=== PATIENT | male | born 1940 | race Caucasian/White ===

== ENCOUNTER → 2017-03-16 | Outpatient (CLI) | payer MEDICARE, OTHER ==
[~2017-03-16] MED LIST: ASPIRIN E.C. 8181 MG PO; ATORVASTATIN CA20 MG PO; CENTRUM SILVER1 EACH PO; CRANBERRY PLUS1 EACH PO; DULERA1 AR1 IH; ESTER-C 1,0001 EACH PO; FUROSEMIDE20 MG PO; GLUCOTROL 5M5 MG/TAB PO; IBUPROFEN 200200 MG PO; METFORMIN HYD1000 MG PO; METOPROLOL SUCC25 M1 PO; NEURONTIN300 MG/CAP PO; NORVASC 10MG10 MG PO; PROAIR HFA0.09 MG/AC IH; SPIRIVA RE2.5 MCG/Ac IH; TERAZOSIN HYDRO10 MG PO; ZYRTEC ALLERGY10 MG PO
== END ==
LOC: LAB 16:41
DX: N30.01 Acute cystitis with hematuria (principal)

== ENCOUNTER 2017-03-17 17:16 | Outpatient (RCR) | payer MEDICARE, OTHER ==
[~2017-03-17] VITALS: Ht 172.7 cm; Wt 134.1 kg
[2017-03-17 17:32] VITALS: BP 143/60
[2017-03-18 17:06] VITALS: BP 166/81
[2017-03-18] MEDS ORDERED: NORVASC 10MG10 MG PO (18:16)
[2017-03-18] MEDS ORDERED: ASPIRIN E.C. 8181 MG PO (18:16)
[2017-03-18] MEDS ORDERED: FUROSEMIDE20 MG PO (18:17)
[2017-03-18] MEDS ORDERED: NEURONTIN300 MG/CAP PO (18:17)
[2017-03-18] MEDS ORDERED: METOPROLOL SUCC25 M1 PO (18:18)
[2017-03-18] MEDS ORDERED: METFORMIN HYD1000 MG PO (18:18)
[2017-03-18] MEDS ORDERED: ATORVASTATIN CA20 MG PO (18:20)
[2017-03-18] MEDS ORDERED: TERAZOSIN HYDRO10 MG PO (18:21)
[2017-03-18] MEDS ORDERED: IBUPROFEN 200200 MG PO (18:21)
[2017-03-18] MEDS ORDERED: PROAIR HFA0.09 MG/AC IH (18:24)
[2017-03-18] MEDS ORDERED: ZYRTEC ALLERGY10 MG PO (18:24)
[2017-03-18] MEDS ORDERED: SPIRIVA RE2.5 MCG/Ac IH (18:25)
[2017-03-18] MEDS ORDERED: DULERA1 AR1 IH (18:25)
[2017-03-18] MEDS ORDERED: GLUCOTROL 5M5 MG/TAB PO (18:25)
[2017-03-18] MEDS ORDERED: CENTRUM SILVER1 EACH PO (18:29)
[2017-03-18] MEDS ORDERED: ESTER-C 1,0001 EACH PO (18:29)
[2017-03-18] MEDS ORDERED: CRANBERRY PLUS1 EACH PO (18:35)
[2017-03-19 16:34] VITALS: BP 137/76
[2017-03-20 15:51] VITALS: BP 151/67
[2017-03-21 15:53] VITALS: BP 148/80
[2017-03-22 15:02] VITALS: BP 130/67
[2017-03-23 16:40] VITALS: BP 122/56
[2017-03-23 16:50] VITALS: BP 148/60
--- NOTE | 2017-03-23 17:00 | NUR ---
At 1640 Pt here for out patient IM rocephin 2gm. Oxygen on room air 85-86% on room air. Pt states he has oxygen he wears 3L/NC. Oxygen applied to pt at 3L/NC. Stated he felt slightly SOB. Sa02 increased to 92-95%. Walks with walker, gait steady. A/o x 3. 1700 Pt and asked if he had a follow appt with Charlette Feliz APRN. Clinic call. Order received for UA and office will call pt on sunday with results and for any follow up appt. 1709 UA received, sent to lab.
== END 2017-03-23 18:00 | disposition home or self-care (01) ==
LOC: AMSURD 17:16
DX: N30.91 Cystitis, unspecified with hematuria (principal)
CPT/HCPCS: J0696

== ENCOUNTER → 2017-03-23 | Outpatient (CLI) | payer MEDICARE, OTHER ==
[2017-03-23 16:40] VITALS: BP 122/56
== END ==
LOC: LAB 17:06
DX: N30.90 Cystitis, unspecified without hematuria (principal)

== ENCOUNTER → 2017-04-13 | Outpatient (CLI) | payer MEDICARE, OTHER ==
[2017-03-23 16:50] VITALS: BP 148/60
[2017-04-13 17:42] LABS: URINE APPEARANCE CLEAR; URINE BILIRUBIN NEGATIVE (NEGATIVE); URINE BLOOD NEGATIVE (NEGATIVE); URINE COLOR YELLOW; URINE GLUCOSE NEGATIVE (NEGATIVE); URINE KETONE NEGATIVE (NEGATIVE); URINE LEUKOCYTE ESTERASE NEGATIVE (NEGATIVE); URINE NITRATE NEGATIVE (NEGATIVE); URINE PROTEIN(semi-quant) NEGATIVE (NEGATIVE); URINE UROBILINOGEN NORMAL (NORMAL)
== END ==
LOC: RAD 16:44
PROVIDERS: Family Medicine
DX: N31.9 Neuromuscular dysfunction of bladder, unspecified (principal); E11.40 Type 2 diabetes mellitus with diabetic neuropathy, unspecified; I10 Essential (primary) hypertension; I35.8 Other nonrheumatic aortic valve disorders; I27.20 Pulmonary hypertension, unspecified; J44.9 Chronic obstructive pulmonary disease, unspecified; M25.572 Pain in left ankle and joints of left foot; Z47.89 Encounter for other orthopedic aftercare; R93.7 Abnormal findings on diagnostic imaging of other parts of musculoskeletal system; Z87.81 Personal history of (healed) traumatic fracture

== ENCOUNTER → 2017-05-24 | Outpatient (CLI) | payer MEDICARE, OTHER ==
[2017-05-24 15:58] LABS: BASO # 0.1 (0.02-0.10); EOS # 0.3 (0.04-0.40); EOS % 3.8 % (0.0-4.0); HEMATOCRIT 44.6 % (42.0-52.0); HEMOGLOBIN 13.8 g/dL (13.5-18.0); LYMPH# 2.1 (1.50-4.00); MEAN CELL VOLUME 99 fl (78-100); MEAN CORPUSCULAR HEMOGLOBIN 31 pg (27-31); MEAN CORPUSCULAR HGB CONC 31 g/dL (33-37); MEAN PLATELET VOLUME 9.7 fl (7.4-10.4); MONO # 0.6 (0.20-0.80); NEU # 3.5 (1.40-6.50); PLATELET COUNT 219 K/mm3 (130-400); RED BLOOD COUNT 4.53 M/mm3 (4.20-5.60); WHITE BLOOD COUNT 6.6 K/mm3 (4.8-10.8)
[2017-05-24 17:11] LABS: ERYTHROCYTE SEDIMENTATION RATE 23 mm/hr (0-20)
== END ==
LOC: LAB 15:19
PROVIDERS: Orthopaedic Surgery Sports Medicine
DX: M25.572 Pain in left ankle and joints of left foot (principal)

== ENCOUNTER 2017-06-14 15:51 | Observation (INO) | payer MEDICARE, OTHER ==
[~2017-06-14] VITALS: Ht 172.7 cm; Wt 130.6 kg
[2017-06-14 16:53] LABS: EOS # 0.3 (0.04-0.40); EOS % 3.8 % (0.0-4.0); HEMATOCRIT 41.1 % (42.0-52.0); HEMOGLOBIN 12.5 g/dL (13.5-18.0); LYMPH# 1.7 (1.50-4.00); MEAN CELL VOLUME 98 fl (78-100); MEAN CORPUSCULAR HEMOGLOBIN 30 pg (27-31); MEAN CORPUSCULAR HGB CONC 30 g/dL (33-37); MEAN PLATELET VOLUME 9.7 fl (7.4-10.4); MONO # 0.7 (0.20-0.80); PLATELET COUNT 200 K/mm3 (130-400); RED BLOOD COUNT 4.18 M/mm3 (4.20-5.60); RED CELL DISTRIBUTION WIDTH 14.9 % (11.5-14.5); WHITE BLOOD COUNT 6.7 K/mm3 (4.8-10.8)
[2017-06-14 17:27] LABS: ALBUMIN 3.3 g/dL (3.5-5.0); CALCIUM 9.1 mg/dL (8.4-10.2); TOTAL BILIRUBIN 0.8 mg/dL (0.2-1.3); TOTAL PROTEIN 6.4 g/dL (6.3-8.2)
[2017-06-14 19:36] VITALS: BP 141/80
--- NOTE | 2017-06-14 19:58 | NUR ---
PATIENT ADMITTED FROM THE ER VIA WHEELCHAIR AT THIS TIME FOR GENERAL WEAKNESS AND FALLS AT HOME, WAS HYPOGLYCEMIC IN THE ER WITH BLOOD SUGAR OF 49, WAS GIVEN ORANGE JUICE AT THAT TIME, HAS BROUGHT IN HIS HOME MEDS AND SON IS BRINGING HIM SOME FOOD AT THIS TIME FOR SUPPER, PATIENT IS ABLE TO TRANSFER SELF FROM THE WHEELCHAIR INTO THE CHAIR WITH STANDBY ASSIST, PARTIAL ASSESSMENT PERFORMED BEFORE PATIENTS FOOD ARRIVED, PATIENT ALERT AND ORIENTED, RESP EVEN/UNLABORD, DENIES ANY PAIN, NAUSEA OR VOMITING, IS NOT LIGHTHEADED OR DIZZY AT THIS TIME, TRAY SET UP FOR PATIENT TO ALLOW HIM TO EAT AT THIS TIME AND WILL RESUME FULL ASSESSMENT IN A LITTLE WHILE, PATIENTS AND SON AT BEDSIDE
--- NOTE | 2017-06-14 21:00 | NUR ---
PATIENT WAS ABLE TO EAT WITHOUT DIFFICULTY, IS CHANGED INTO A GOWN AND FULL SKIN ASSESSMENT PERFORMED AT THIS TIME, TELEMETRY APPLIED, NORMAL SINUS RHYTHM, 1+ EDEMA NOTED TO BILATERAL LOWER LEGS, HAS ALBERTO HOSE ON, LUNGS CLEAR, BOWEL SOUNDS ACTIVE, PULSES STRONG IN ALL 4 EXTREMITIES, HEART REGULAR, PATIENT CLAIMS HE FEELS BETTER NOW THEN HE HAS IN DAYS, EDUCATION PROVIDED ON S/S OF HYPOGLYCEMIA, THE NEED TO CHECK BLOOD SUGARS ESPECIALLY WHEN FEELING LIGHTHEADED/WEAK OR DIZZY, PATIENT THINKS HE HAS A GLUCOMETER AT HOME BUT NOT SURE IF HE HAS ANY STRIPS, WILL PASS THAT INFORMATION ON TO MAKE SURE HE HAS ADEQUATE SUPPLIES BEFORE GOING HOME, EDUCATION PROVIDED ON NORMAL AND ABNORMAL BLOOD SUGAR RANGES AND S/S OF ABNORMAL SUGARS, FURTHER EDUCATION WILL BE NEEDED
[2017-06-14 21:14] LABS: URINE APPEARANCE CLEAR; URINE COLOR YELLOW
[2017-06-14 21:15] LABS: URINE BILIRUBIN NEGATIVE (NEGATIVE); URINE BLOOD NEGATIVE (NEGATIVE); URINE GLUCOSE NEGATIVE (NEGATIVE); URINE KETONE NEGATIVE (NEGATIVE); URINE LEUKOCYTE ESTERASE NEGATIVE (NEGATIVE); URINE NITRATE NEGATIVE (NEGATIVE); URINE PROTEIN(semi-quant) TRACE mg/dL (NEGATIVE); URINE UROBILINOGEN NORMAL (NORMAL); URINE WBC 0-1 /hpf (0-3)
[2017-06-14 22:37] VITALS: BP 132/71
[2017-06-14] MEDS ORDERED: GLUCOTROL 5M5 MG/TAB PO (23:51)
[2017-06-14] MEDS ORDERED: DULERA1 ARO IH (23:53)
[2017-06-15] VITALS (8 sets, daily range): BP systolic 127–159; BP diastolic 59–79
[2017-06-15] MEDS ORDERED: OMEGA 3 1,0001 EACH PO (00:01)
[2017-06-15 07:28] LABS: BUN/CREATININE RATIO 18.4 (6.0-26.0); CALCIUM 8.9 mg/dL (8.4-10.2); POTASSIUM 5.2 mmol/L (3.6-5.0)
--- NOTE | 2017-06-15 07:30 | NUR ---
REPORT RECEIVED FROM Lyudmila HERRERARN
--- NOTE | 2017-06-15 07:50 | NUR ---
PATIENT'S SP02 88% ON 3L O2 NASAL CANNULA. PATIENT REPORTS THAT BREATHING FEELS "NOT TOO BAD" PATIENT'S OXYGEN INCREASED TO 4L NC. SP02 UP TO 89-90%. PATIENT REPORTS THAT IT'S NORMAL FOR HIM TO RUN IN THE 80'S.
--- NOTE | 2017-06-15 07:55 | NUR ---
PATIENT TRANSPORTED TO RADIOLOGY VIA WHEELCHAIR AT THIS TIME FOR THYROID ULTRASOUND AND CAROTID DOPPLARS
--- NOTE | 2017-06-15 07:55 | NUR ---
IN TO SEE PATIENT. NOTIFIED OF PATIENT'SSP02.
--- NOTE | 2017-06-15 08:30 | NUR ---
PATIENT SITTING UP IN RECLINER. SHIFT ASSESSMENT COMPLETE. PATIENT ALERT AND ORIENTED X4. REPORTS HAVING PAIN TO RIGHT SHOULDER THAT IS INTERMITTENT. REPORTS PAIN GETS UP TO 9/10 BUT ONCE HE MOVES IT A CERTAIN WAY PAIN IMPROVES. REPORTS THAT PAIN IS CHRONIC AND DENIES ANY NEED FOR INTERVENTION AT THIS TIME. PATIENT ON OXYGEN VIA NASAL CANNULA AT 4L. WHEN ASKED IF HE IS EXPERIENCING SHORTNESS OF BREATH STATES "NOT TOO BAD" REPORTS THAT HE FEELS THOUGH HE IS BREATHING AT HIS BASELINE. REPORTS FEELING BETTER THIS MORNING AND NOT WEAK. PATIENT'S CALL LIGHT WITHIN REACH. CHAIR ALARM ON.
--- NOTE | 2017-06-15 13:37 | NUR ---
Spoke w/ pt and son regarding HH options upon discharge versus outpt therapy here at hospital. Release of info sheet and HH options sheet presented to pt/son and they prefer to discuss with pt's prior to making any decisions. Pt verbalizes he would prefer in home therapies initially. Family will try to decide by this evening. Family also understands that PCP's office can set up HH if decision cannot be made by time of d/c.
--- NOTE | 2017-06-15 14:50 | NUR ---
Pt and family have chosen [facility] for their HH services. [facility] staff notified of pt's possible d/c tomorrow and they will contact pt tomorrow (if accepted).
[2017-06-15 15:20] LABS: D-DIMER 1.83 mg/L FEU (0.15-0.50)
--- NOTE | 2017-06-15 15:51 | NUR ---
Pt aware of tranfer per Dr. Esquivel's order. Spoke w/ pt regarding SWB services offered here at [facility] should he need further therapy after stay at [facility] and of the continued availability of HHS following hospitalization.
--- NOTE | 2017-06-15 19:45 | NUR ---
REPORT RECEIVED FROM RAMONA ELIZABETH AND BEDSIDE ROUNDING DONE. WILL TALK TO DR ABOUT BLADDER SCAN RESULTS. PT DENIES ANY OTHER NEEDS AT THIS TIME.
--- NOTE | 2017-06-15 20:15 | NUR ---
Pt bladder scanned by day shift for 891 ml at 1830 . Pt then voided approx 100ml. Pt then rebladder scanned by day shift at 1859. Bladder scan ranged from 681-783. Dr Coughlin informed at approx 2000 post void residual. Received orders to straight cath pt. This RN then straight cathed pt for 1050ml. Pt tolerated well. inform of amount of urine. Pt states he now feels less full and he will be able to sleep better tonight.
--- NOTE | 2017-06-16 01:33 | NUR ---
REPORT GIVEN TO RAMONA VALERO AND CARE TRANSFERED.
--- NOTE | 2017-06-16 01:35 | NUR ---
Resting in bed, eyes closed even respirations. Bed alarm set. C-pap machine on.
--- NOTE | 2017-06-16 03:45 | NUR ---
Q hourly checks done. Bed alarm set. C-pap on. Augustine KELLY reported pt's Sa02 83%-87%. Pt opens eyes when spoken too. Denies SOB, chest pain or abd pain. I asked pt to take deep breaths through mouth with c-pap nose piece on. Sa02 increased to 91%.
[2017-06-16 03:47] VITALS: BP 134/73
[2017-06-16 06:24] VITALS: BP 146/74
--- NOTE | 2017-06-16 07:00 | NUR ---
Report to Ruth Booker RN.
--- NOTE | 2017-06-16 07:20 | NUR ---
REPORT RECEIVED FROM RAMONA VALERO
--- NOTE | 2017-06-16 07:30 | NUR ---
0715 Bladder Scan done. Scan showed 979mls. Dr Coughlin called notified. Order received for indwelling catheter to dependant drainage. 0740 Howard catheter 16 uzbek placed. Stat lock placed on pt's right upper inner thigh.
--- NOTE | 2017-06-16 07:32 | NUR ---
Dr Coughlin notified of pt bladder scan results of >900. He orders ayala cath to be placed
--- NOTE | 2017-06-16 08:30 | NUR ---
PATIENT'S SHIFT ASSESSMENT COMPLETE. PATIENT ALERT AND ORIENTED X4. DENIES ANY PAIN OR DISCOMFORTS AT THIS TIME. REPORTS THAT HE HAD A GOOD NIGHT LASTNIGHT. WHEN ASKED HOW HE IS FEELING THIS MORNING STATES "PRETTY GOOD ACTUALLY, I FEEL LIKE I'M GETTING STRENGTH BACK" REPORTS HIS BREATHING FEELS "NOT TOO BAD" ON OXYGEN VIA NASAL CANNULA AT 3L. PATIENT HAS +2 EDEMA TO BILAT LOWER EXT. PATIENT'S RIGHT LEG MORE EDEMATOUS THIS MORNING THAN YESTERDAY. PATIENT'S ABDOMEN ROUNDED. ABDOMEN NOT DISTENDED AFTER WU CATHETER PLACEMENT. PATIENT'S CALL LIGHT WITHIN REACH. BED ALARM ON.
[2017-06-16 09:05] LABS: BASO # 0.1 (0.02-0.10); EOS # 0.3 (0.04-0.40); HEMATOCRIT 42.3 % (42.0-52.0); HEMOGLOBIN 12.9 g/dL (13.5-18.0); LYMPH# 1.3 (1.50-4.00); MEAN CELL VOLUME 98 fl (78-100); MEAN CORPUSCULAR HEMOGLOBIN 30 pg (27-31); MEAN CORPUSCULAR HGB CONC 31 g/dL (33-37); MEAN PLATELET VOLUME 9.4 fl (7.4-10.4); MONO # 0.6 (0.20-0.80); NEU # 3.6 (1.40-6.50); PLATELET COUNT 218 K/mm3 (130-400); RED BLOOD COUNT 4.33 M/mm3 (4.20-5.60); WHITE BLOOD COUNT 5.8 K/mm3 (4.8-10.8)
[2017-06-16 09:13] LABS: EOS % 5.1 % (0.0-4.0)
[2017-06-16 09:14] LABS: BUN/CREATININE RATIO 19.1 (6.0-26.0)
[2017-06-16 11:25] VITALS: BP 130/71
--- NOTE | 2017-06-16 11:30 | NUR ---
IN TO SEE PATIENT.
[2017-06-16 14:38] VITALS: BP 141/72
--- NOTE | 2017-06-16 16:15 | NUR ---
PATIENT PROVIDED DISCHARGE INSTRUCTIONS PATIENT'S IN ROOM. THIS NURSE SPENT AT LEAST 1 HOUR IN ROOM WITH PATIENT AND PROVIDING EDUCATION AND GOING OVER DISCHARGE INFORMATION. THIS NURSE PROVIDED THOROUGH EDUCATION ON WU CATHETER CARE AT HOME ESPECIALLY ON INFECTION PREVENTION. DEMONSTRATED TO BOTH PATIENT AND HOW TO CHANGE DEPENDENT BAG TO LEG BAG. VERBALIZED UNDERSTANDING OF INSTRUCTIONS. DENIED ANY QUESTIONS REGARDING HOME CATH CARE AT THIS TIME. PATIENT SENT HOME WITH LEG BAG,EXTRA STAT LOCK,EXTRA WU CATHETER BAG. WENT OVER PATIENT'S MEDICATIONS AND LIST. PROVIDED PATIENT WITH COPIES OF LABS, EKG,AND HEALTH HISTORY PACKET TO TAKE TO DR.KATZ CROUCH. DENIES ANY QUESTIONS FOR THE NURSE AT THIS TIME.
--- NOTE | 2017-06-16 16:30 | NUR ---
CONTACTED [facility] AND NOTIFIED THEM THAT PATIENT IS BEING DISCHARGED TODAY. [facility] WAS NOT PLANNING ON DOING PATIENT'S ADMISSION UNTIL SUNDAY THEY ASKED IF PATIENT WOULD BE OKAY WITHOUT HOME HEALTH UNTIL SUNDAY. REQUESTED THAT THEY COME SUNDAY. HOME HEALTH NURSE PROVIDED WEEKEND CLIENT SERVICE REPRESENTATIVE NUMBER TO GIVE TO PATIENT AND WANTED PATIENT TO CALL THAT NUMBER IF THEY NEEDED ANYTHING AT ALL OVER THE WEEKEND. PROVIDED NUMBER TO PATIENT AND .
--- NOTE | 2017-06-16 16:50 | NUR ---
DAKOTA AUTOMATIC CLIPPER IN WITH PATIENT AND TO SET UP NEW ACCU CHECK MONITOR AND TO EDUCATE ON HOW TO USE AND MAKE SURE PATIENT IS ABLE TO USE AT HOME. PATIENT PROVIDED EDUCATION ON DIABETIES DIET AND NORMAL BLOOD SUGAR RANGES.
--- NOTE | 2017-06-16 17:03 | NUR ---
PATIENT LEFT FACILITY VIA WHEELCHAIR TO POV ACCOMPANIED BY THIS NURSE ZAN AND PATIENT'S . PERSONAL BELONGINGS AND DISCHARGE PAPERWORK SENT WITH PATIENT'S . PATIENT'S DISCHARGE INSTRUCTIONS FAXED TO [facility] PER INSTRUCTIONS ALSO CALLED AND NOTIFIED OF PATIENT'S DISCHARGE TIME AND THAT PATIENT HAS APPT WITH [facility] Sunday SO THEY WILL NEED TO COME SOMETIME AFTER APPT TO DO PATIENT'S HOME HEALTH ADMISSION.
== END 2017-06-16 17:03 | disposition home health service (06) ==
LOC: ED 15:51 → MED/SURG 19:28
PROVIDERS: Family Medicine; Nurse Practitioner Family; ADMIT Family Medicine
DX: N17.9 Acute kidney failure, unspecified (principal); J44.9 Chronic obstructive pulmonary disease, unspecified; E11.22 Type 2 diabetes mellitus with diabetic chronic kidney disease; N18.9 Chronic kidney disease, unspecified; E11.649 Type 2 diabetes mellitus with hypoglycemia without coma; T38.3X5A Adverse effect of insulin and oral hypoglycemic [antidiabetic] drugs, initial encounter; I12.9 Hypertensive chronic kidney disease with stage 1 through stage 4 chronic kidney disease, or unspecified chronic kidney disease; Z79.84 Long term (current) use of oral hypoglycemic drugs; I35.0 Nonrheumatic aortic (valve) stenosis; E11.40 Type 2 diabetes mellitus with diabetic neuropathy, unspecified; E66.01 Morbid (severe) obesity due to excess calories; I27.20 Pulmonary hypertension, unspecified; G47.30 Sleep apnea, unspecified; N31.9 Neuromuscular dysfunction of bladder, unspecified; R01.1 Cardiac murmur, unspecified; R09.02 Hypoxemia; N13.9 Obstructive and reflux uropathy, unspecified; Z99.81 Dependence on supplemental oxygen; N39.498 Other specified urinary incontinence; Z91.81 History of falling; Z68.42 Body mass index [BMI] 45.0-49.9, adult; Z87.891 Personal history of nicotine dependence; Z88.5 Allergy status to narcotic agent; Z88.8 Allergy status to other drugs, medicaments and biological substances; Z79.82 Long term (current) use of aspirin; Z79.02 Long term (current) use of antithrombotics/antiplatelets; Z79.01 Long term (current) use of anticoagulants
CPT/HCPCS: A4354; G0378; G8978-GP; G8979-GP; J1650

== ENCOUNTER → 2017-06-20 | Outpatient (CLI) | payer MEDICARE, OTHER ==
[2017-06-16 14:38] VITALS: BP 141/72
[~2017-06-20] MED LIST changes: +DULERA1 ARO IH; +OMEGA 3 1,0001 EACH PO
[2017-06-20 16:19] LABS: BUN/CREATININE RATIO 19.4 (6.0-26.0); CALCIUM 9.3 mg/dL (8.4-10.2)
[2017-06-20 16:50] LABS: URINE APPEARANCE HAZY; URINE BILIRUBIN NEGATIVE (NEGATIVE); URINE BLOOD 250 ery/uL (NEGATIVE); URINE COLOR YELLOW; URINE GLUCOSE NEGATIVE (NEGATIVE); URINE KETONE NEGATIVE (NEGATIVE); URINE LEUKOCYTE ESTERASE 1+ (NEGATIVE); URINE NITRATE POSITIVE (NEGATIVE); URINE PROTEIN(semi-quant) 2+ mg/dL (NEGATIVE); URINE UROBILINOGEN NORMAL (NORMAL)
== END ==
LOC: LAB 15:53
PROVIDERS: Family Medicine
DX: R50.9 Fever, unspecified (principal); R30.0 Dysuria

== ENCOUNTER → 2017-06-25 | Outpatient (CLI) | payer MEDICARE, OTHER ==
[2017-06-16 14:38] VITALS: BP 141/72
[2017-06-25 14:07] LABS: URINE APPEARANCE HAZY; URINE COLOR YELLOW
[2017-06-25 14:08] LABS: URINE BILIRUBIN NEGATIVE (NEGATIVE); URINE BLOOD 50 ery/uL (NEGATIVE); URINE GLUCOSE NEGATIVE (NEGATIVE); URINE KETONE NEGATIVE (NEGATIVE); URINE LEUKOCYTE ESTERASE 2+ (NEGATIVE); URINE NITRATE NEGATIVE (NEGATIVE); URINE PROTEIN(semi-quant) 2+ mg/dL (NEGATIVE); URINE UROBILINOGEN NORMAL (NORMAL); URINE WBC >50 /hpf (0-3)
== END ==
LOC: LAB 12:38
PROVIDERS: Family Medicine
DX: N31.9 Neuromuscular dysfunction of bladder, unspecified (principal); R33.8 Other retention of urine; N39.0 Urinary tract infection, site not specified; E13.9 Other specified diabetes mellitus without complications; I10 Essential (primary) hypertension; J44.9 Chronic obstructive pulmonary disease, unspecified

== ENCOUNTER → 2017-07-02 | Outpatient (CLI) | payer MEDICARE, OTHER ==
[2017-06-16 14:38] VITALS: BP 141/72
[2017-07-02 16:10] LABS: URINE APPEARANCE HAZY; URINE COLOR YELLOW
[2017-07-02 16:11] LABS: URINE BILIRUBIN NEGATIVE (NEGATIVE); URINE BLOOD NEGATIVE (NEGATIVE); URINE GLUCOSE NEGATIVE (NEGATIVE); URINE KETONE NEGATIVE (NEGATIVE); URINE LEUKOCYTE ESTERASE NEGATIVE (NEGATIVE); URINE NITRATE NEGATIVE (NEGATIVE); URINE PROTEIN(semi-quant) TRACE mg/dL (NEGATIVE); URINE UROBILINOGEN NORMAL (NORMAL); URINE WBC 0-1 /hpf (0-3)
== END ==
LOC: LAB 15:17
PROVIDERS: Family Medicine
DX: N39.0 Urinary tract infection, site not specified (principal); R33.8 Other retention of urine; Z88.5 Allergy status to narcotic agent; Z88.8 Allergy status to other drugs, medicaments and biological substances

== ENCOUNTER → 2017-07-05 | Outpatient (CLI) | payer MEDICARE, OTHER ==
[~2017-07-05] VITALS: Ht 172.7 cm; Wt 130.6 kg
[2017-07-05 13:29] LABS: URINE APPEARANCE CLOUDY; URINE BILIRUBIN NEGATIVE (NEGATIVE); URINE BLOOD 250 ery/uL (NEGATIVE); URINE COLOR YELLOW; URINE GLUCOSE NEGATIVE (NEGATIVE); URINE KETONE NEGATIVE (NEGATIVE); URINE LEUKOCYTE ESTERASE 1+ (NEGATIVE); URINE NITRATE NEGATIVE (NEGATIVE); URINE PROTEIN(semi-quant) 3+ mg/dL (NEGATIVE); URINE UROBILINOGEN NORMAL (NORMAL); URINE WBC >50 /hpf (0-3)
[2017-07-05 13:34] VITALS: BP 151/75
--- NOTE | 2017-07-05 13:38 | NUR ---
straight cath completed using #12 ayala for collection of UA and Culture,ordered per Dr. Black. Spec to lab, patient home
== END ==
LOC: LAB 12:17 → AMSURD 12:17
PROVIDERS: Urology
DX: N39.0 Urinary tract infection, site not specified (principal)
CPT/HCPCS: A4344; A4354

== ENCOUNTER → 2017-07-12 | Outpatient (CLI) | payer MEDICARE, OTHER ==
[2017-07-05 13:34] VITALS: BP 151/75
[2017-07-12 13:04] LABS: URINE APPEARANCE CLEAR; URINE BILIRUBIN NEGATIVE (NEGATIVE); URINE BLOOD NEGATIVE (NEGATIVE); URINE COLOR YELLOW; URINE GLUCOSE NEGATIVE (NEGATIVE); URINE KETONE NEGATIVE (NEGATIVE); URINE LEUKOCYTE ESTERASE NEGATIVE (NEGATIVE); URINE NITRATE NEGATIVE (NEGATIVE); URINE PROTEIN(semi-quant) TRACE mg/dL (NEGATIVE); URINE UROBILINOGEN NORMAL (NORMAL); URINE WBC 0-1 /hpf (0-3)
== END ==
LOC: LAB 12:41
PROVIDERS: Family Medicine
DX: N31.9 Neuromuscular dysfunction of bladder, unspecified (principal); E11.9 Type 2 diabetes mellitus without complications; Z88.5 Allergy status to narcotic agent

== ENCOUNTER → 2017-07-24 | Outpatient (CLI) | payer MEDICARE, OTHER ==
[2017-07-05 13:34] VITALS: BP 151/75
[2017-07-24 14:11] LABS: URINE APPEARANCE CLOUDY; URINE BILIRUBIN NEGATIVE (NEGATIVE); URINE BLOOD 250 ery/uL (NEGATIVE); URINE COLOR YELLOW; URINE GLUCOSE NEGATIVE (NEGATIVE); URINE KETONE NEGATIVE (NEGATIVE); URINE LEUKOCYTE ESTERASE 2+ (NEGATIVE); URINE NITRATE NEGATIVE (NEGATIVE); URINE PROTEIN(semi-quant) 2+ mg/dL (NEGATIVE); URINE UROBILINOGEN NORMAL (NORMAL)
[2017-07-24 14:12] LABS: URINE WBC >50 /hpf (0-3)
== END ==
LOC: LAB 13:32
PROVIDERS: Family Medicine
DX: N39.0 Urinary tract infection, site not specified (principal); R50.9 Fever, unspecified; N31.9 Neuromuscular dysfunction of bladder, unspecified; R30.0 Dysuria

== ENCOUNTER → 2017-07-30 | Outpatient (CLI) | payer MEDICARE, OTHER ==
[2017-07-05 13:34] VITALS: BP 151/75
[2017-07-30 13:23] LABS: EOS # 0.2 (0.04-0.40); EOS % 2.4 % (0.0-4.0); HEMOGLOBIN 12.8 g/dL (13.5-18.0); LYMPH# 1.3 (1.50-4.00); MEAN CELL VOLUME 93 fl (78-100); MEAN CORPUSCULAR HEMOGLOBIN 29 pg (27-31); MEAN CORPUSCULAR HGB CONC 31 g/dL (33-37); MEAN PLATELET VOLUME 9.2 fl (7.4-10.4); MONO # 0.7 (0.20-0.80); PLATELET COUNT 272 K/mm3 (130-400); RED BLOOD COUNT 4.41 M/mm3 (4.20-5.60); RED CELL DISTRIBUTION WIDTH 14.2 % (11.5-14.5); WHITE BLOOD COUNT 7.2 K/mm3 (4.8-10.8)
[2017-07-30 13:59] LABS: ALBUMIN 3.8 g/dL (3.5-5.0); BUN/CREATININE RATIO 16.7 (6.0-26.0); CALCIUM 9.1 mg/dL (8.4-10.2); TOTAL BILIRUBIN 0.3 mg/dL (0.2-1.3); TOTAL PROTEIN 7.4 g/dL (6.3-8.2)
== END ==
LOC: LAB 13:09
PROVIDERS: Family Medicine
DX: R60.0 Localized edema (principal); J06.9 Acute upper respiratory infection, unspecified; L20.9 Atopic dermatitis, unspecified; Z88.5 Allergy status to narcotic agent

== ENCOUNTER → 2017-08-02 | Outpatient (CLI) | payer MEDICARE, OTHER ==
[2017-07-05 13:34] VITALS: BP 151/75
[2017-08-02 19:01] LABS: PH-URINE 5.5 (5.0 - 8.0); URINE APPEARANCE CLEAR; URINE COLOR YELLOW; URINE PROTEIN(semi-quant) TRACE mg/dL (NEGATIVE)
[2017-08-02 19:03] LABS: URINE BILIRUBIN NEGATIVE (NEGATIVE); URINE BLOOD NEGATIVE (NEGATIVE); URINE GLUCOSE NEGATIVE (NEGATIVE); URINE KETONE NEGATIVE (NEGATIVE); URINE LEUKOCYTE ESTERASE TRACE (NEGATIVE); URINE NITRATE NEGATIVE (NEGATIVE); URINE UROBILINOGEN NORMAL (NORMAL)
== END ==
LOC: LAB 18:15
PROVIDERS: Family Medicine
DX: R60.0 Localized edema (principal); J06.9 Acute upper respiratory infection, unspecified; L20.9 Atopic dermatitis, unspecified

== ENCOUNTER → 2017-08-09 | Outpatient (CLI) | payer MEDICARE, OTHER ==
[2017-07-05 13:34] VITALS: BP 151/75
[2017-08-09 18:05] LABS: BUN/CREATININE RATIO 25.6 (6.0-26.0); CALCIUM 9.5 mg/dL (8.4-10.2); POTASSIUM 5.1 mmol/L (3.6-5.0)
[2017-08-09 18:16] LABS: PH-URINE 5.5 (5.0 - 8.0); URINE APPEARANCE CLEAR; URINE COLOR YELLOW
[2017-08-09 18:17] LABS: URINE BILIRUBIN NEGATIVE (NEGATIVE); URINE BLOOD NEGATIVE (NEGATIVE); URINE GLUCOSE NEGATIVE (NEGATIVE); URINE KETONE NEGATIVE (NEGATIVE); URINE LEUKOCYTE ESTERASE NEGATIVE (NEGATIVE); URINE NITRATE NEGATIVE (NEGATIVE); URINE PROTEIN(semi-quant) TRACE mg/dL (NEGATIVE); URINE UROBILINOGEN NORMAL (NORMAL); URINE WBC 0-1 /hpf (0-3)
== END ==
LOC: LAB 17:37
PROVIDERS: Family Medicine
DX: N39.0 Urinary tract infection, site not specified (principal); N31.9 Neuromuscular dysfunction of bladder, unspecified; R60.0 Localized edema; Z88.5 Allergy status to narcotic agent

== ENCOUNTER → 2017-10-16 | Outpatient (CLI) | payer MEDICARE, OTHER ==
[2017-07-05 13:34] VITALS: BP 151/75
[2017-10-16 11:51] LABS: ALBUMIN 3.7 g/dL (3.5-5.0); BUN/CREATININE RATIO 24.4 (6.0-26.0); CALCIUM 9.1 mg/dL (8.4-10.2); POTASSIUM 4.4 mmol/L (3.6-5.0); TOTAL BILIRUBIN 0.4 mg/dL (0.2-1.3); TOTAL PROTEIN 7.3 g/dL (6.3-8.2)
== END ==
LOC: LAB 11:12
PROVIDERS: Family Medicine
DX: J44.1 Chronic obstructive pulmonary disease with (acute) exacerbation (principal); J30.9 Allergic rhinitis, unspecified; E11.9 Type 2 diabetes mellitus without complications; I10 Essential (primary) hypertension

== ENCOUNTER → 2017-10-31 | Outpatient (CLI) | payer MEDICARE, OTHER ==
[2017-07-05 13:34] VITALS: BP 151/75
[2017-10-31 15:56] LABS: URINE APPEARANCE HAZY; URINE COLOR YELLOW; URINE GLUCOSE NEGATIVE (NEGATIVE); URINE PROTEIN(semi-quant) 2+ mg/dL (NEGATIVE)
[2017-10-31 15:57] LABS: URINE BILIRUBIN NEGATIVE (NEGATIVE); URINE BLOOD 50 ery/uL (NEGATIVE); URINE KETONE NEGATIVE (NEGATIVE); URINE LEUKOCYTE ESTERASE 2+ (NEGATIVE); URINE NITRATE NEGATIVE (NEGATIVE); URINE UROBILINOGEN NORMAL (NORMAL); URINE WBC >50 /hpf (0-3)
[2017-10-31 17:31] LABS: BUN/CREATININE RATIO 20.5 (6.0-26.0); CALCIUM 9.4 mg/dL (8.4-10.2)
== END ==
LOC: LAB 16:44
PROVIDERS: Family Medicine
DX: N18.3 Chronic kidney disease, stage 3 (moderate) (principal); N31.9 Neuromuscular dysfunction of bladder, unspecified; R33.9 Retention of urine, unspecified; N39.0 Urinary tract infection, site not specified; R30.0 Dysuria

== ENCOUNTER → 2017-11-07 | Outpatient (CLI) | payer MEDICARE, OTHER ==
[2017-07-05 13:34] VITALS: BP 151/75
[2017-11-07 11:09] LABS: URINE APPEARANCE CLEAR; URINE BILIRUBIN NEGATIVE (NEGATIVE); URINE BLOOD NEGATIVE (NEGATIVE); URINE COLOR YELLOW; URINE GLUCOSE NEGATIVE (NEGATIVE); URINE KETONE NEGATIVE (NEGATIVE); URINE LEUKOCYTE ESTERASE NEGATIVE (NEGATIVE); URINE NITRATE NEGATIVE (NEGATIVE); URINE PROTEIN(semi-quant) NEGATIVE (NEGATIVE); URINE UROBILINOGEN NORMAL (NORMAL)
== END ==
LOC: LAB 10:52
PROVIDERS: Family Medicine
DX: N31.9 Neuromuscular dysfunction of bladder, unspecified (principal); R33.9 Retention of urine, unspecified

== ENCOUNTER → 2017-11-19 | Outpatient (CLI) | payer MEDICARE, OTHER ==
[2017-07-05 13:34] VITALS: BP 151/75
[2017-11-19 13:35] LABS: URINE APPEARANCE HAZY; URINE COLOR YELLOW
[2017-11-19 13:36] LABS: URINE BILIRUBIN NEGATIVE (NEGATIVE); URINE BLOOD NEGATIVE (NEGATIVE); URINE GLUCOSE NEGATIVE (NEGATIVE); URINE KETONE NEGATIVE (NEGATIVE); URINE LEUKOCYTE ESTERASE 2+ (NEGATIVE); URINE NITRATE POSITIVE (NEGATIVE); URINE PROTEIN(semi-quant) TRACE mg/dL (NEGATIVE); URINE UROBILINOGEN NORMAL (NORMAL); URINE WBC 31-50 /hpf (0-3)
== END ==
LOC: LAB 12:32
PROVIDERS: Family Medicine
DX: R33.9 Retention of urine, unspecified (principal); N31.9 Neuromuscular dysfunction of bladder, unspecified

== ENCOUNTER → 2017-11-29 | Outpatient (CLI) | payer MEDICARE, OTHER ==
[2017-07-05 13:34] VITALS: BP 151/75
[2017-11-29 10:33] LABS: URINE COLOR YELLOW
[2017-11-29 10:34] LABS: URINE APPEARANCE HAZY; URINE BILIRUBIN NEGATIVE (NEGATIVE); URINE BLOOD NEGATIVE (NEGATIVE); URINE GLUCOSE NEGATIVE (NEGATIVE); URINE KETONE NEGATIVE (NEGATIVE); URINE LEUKOCYTE ESTERASE 2+ (NEGATIVE); URINE NITRATE POSITIVE (NEGATIVE); URINE PROTEIN(semi-quant) 1+ mg/dL (NEGATIVE); URINE UROBILINOGEN NORMAL (NORMAL)
[2017-11-29 10:35] LABS: URINE WBC 31-50 /hpf (0-3)
== END ==
LOC: LAB 10:12
PROVIDERS: Family Medicine
DX: R33.9 Retention of urine, unspecified (principal); N31.9 Neuromuscular dysfunction of bladder, unspecified

== ENCOUNTER → 2018-01-14 | Outpatient (CLI) | payer MEDICARE, OTHER ==
[2017-07-05 13:34] VITALS: BP 151/75
[2018-01-14 14:30] LABS: BUN/CREATININE RATIO 21.9 (6.0-26.0); CALCIUM 8.8 mg/dL (8.4-10.2)
== END ==
LOC: LAB 14:03
PROVIDERS: Family Medicine
DX: E11.22 Type 2 diabetes mellitus with diabetic chronic kidney disease (principal); N18.3 Chronic kidney disease, stage 3 (moderate)

== ENCOUNTER 2018-01-18 18:36 | Outpatient (RCR) | payer MEDICARE, OTHER ==
[~2018-01-18] VITALS: Ht 172.7 cm; Wt 122.7 kg
[2018-01-18 19:10] VITALS: BP 121/57
--- NOTE | 2018-01-18 19:14 | NUR ---
Pt reports he uses oxygen at home all the time. He reports 89% is about right for me.
[2018-01-19 18:56] VITALS: BP 127/63
[2018-01-20 18:58] VITALS: BP 115/71
== END 2018-01-20 23:00 | disposition home or self-care (01) ==
LOC: AMSURD 18:36
DX: N39.0 Urinary tract infection, site not specified (principal)
CPT/HCPCS: J0696

== ENCOUNTER → 2018-01-18 | Outpatient (CLI) | payer MEDICARE, OTHER ==
[2017-07-05 13:34] VITALS: BP 151/75
[2018-01-18 10:30] LABS: PH-URINE 5.5 (5.0 - 8.0); URINE APPEARANCE HAZY; URINE BILIRUBIN NEGATIVE (NEGATIVE); URINE BLOOD NEGATIVE (NEGATIVE); URINE COLOR YELLOW; URINE GLUCOSE NEGATIVE (NEGATIVE); URINE KETONE NEGATIVE (NEGATIVE); URINE LEUKOCYTE ESTERASE 2+ (NEGATIVE); URINE NITRATE POSITIVE (NEGATIVE); URINE PROTEIN(semi-quant) TRACE mg/dL (NEGATIVE); URINE UROBILINOGEN NORMAL (NORMAL)
[2018-01-18 10:31] LABS: URINE WBC >50 /hpf (0-3)
== END ==
LOC: LAB 09:21
PROVIDERS: Family Medicine
DX: N18.3 Chronic kidney disease, stage 3 (moderate) (principal); R33.9 Retention of urine, unspecified; N39.0 Urinary tract infection, site not specified

== ENCOUNTER → 2018-03-01 | Outpatient (CLI) | payer MEDICARE, OTHER ==
[~2018-03-01] MED LIST changes: +RT ADVAIR HFA 2312 G IH
[2018-03-01 18:41] LABS: URINE COLOR YELLOW
[2018-03-01 18:42] LABS: URINE APPEARANCE CLEAR; URINE BILIRUBIN NEGATIVE (NEGATIVE); URINE BLOOD NEGATIVE (NEGATIVE); URINE GLUCOSE NEGATIVE (NEGATIVE); URINE KETONE NEGATIVE (NEGATIVE); URINE LEUKOCYTE ESTERASE NEGATIVE (NEGATIVE); URINE NITRATE NEGATIVE (NEGATIVE); URINE PROTEIN(semi-quant) TRACE mg/dL (NEGATIVE); URINE UROBILINOGEN NORMAL (NORMAL); URINE WBC 0-1 /hpf (0-3)
== END ==
LOC: LAB 14:56
PROVIDERS: Family Medicine
DX: N18.3 Chronic kidney disease, stage 3 (moderate) (principal); R33.9 Retention of urine, unspecified; N39.0 Urinary tract infection, site not specified

== ENCOUNTER 2018-03-03 13:54 | Outpatient (RCR) | payer MEDICARE, OTHER ==
[2018-03-01 15:05] VITALS: BP 143/67
[2018-03-02 14:11] VITALS: BP 142/74
[~2018-03-03] VITALS: Ht 172.7 cm; Wt 122.7 kg
[2018-03-03 13:58] VITALS: BP 149/66
== END 2018-03-03 15:00 | disposition home or self-care (01) ==
LOC: AMSURD 13:54
DX: N39.0 Urinary tract infection, site not specified (principal)
CPT/HCPCS: J0696

== ENCOUNTER 2018-05-02 13:59 | Outpatient (RCR) | payer MEDICARE, OTHER ==
[2018-05-01 12:49] VITALS: BP 131/68
[~2018-05-02] VITALS: Ht 172.7 cm; Wt 122.7 kg
[~2018-05-02 13:59] MED LIST changes: +CEFTRIAXONE1 G1 IM
[2018-05-02 14:10] VITALS: BP 136/72
== END 2018-05-02 15:00 | disposition home or self-care (01) ==
LOC: AMSURD 13:59
DX: N39.0 Urinary tract infection, site not specified (principal)
CPT/HCPCS: J0696

== ENCOUNTER → 2018-07-01 | Outpatient (CLI) | payer MEDICARE, OTHER ==
[2018-07-01 17:23] LABS: PH-URINE 6.5 (5.0 - 8.0); URINE APPEARANCE CLEAR; URINE COLOR YELLOW; URINE PROTEIN(semi-quant) TRACE mg/dL (NEGATIVE)
[2018-07-01 17:24] LABS: URINE BILIRUBIN NEGATIVE (NEGATIVE); URINE BLOOD NEGATIVE (NEGATIVE); URINE GLUCOSE NEGATIVE (NEGATIVE); URINE KETONE NEGATIVE (NEGATIVE); URINE LEUKOCYTE ESTERASE 1+ (NEGATIVE); URINE NITRATE NEGATIVE (NEGATIVE); URINE UROBILINOGEN NORMAL (NORMAL); URINE WBC 16-30 /hpf (0-3)
== END ==
LOC: LAB 16:29
PROVIDERS: Family Medicine
DX: N39.0 Urinary tract infection, site not specified (principal); B99.9 Unspecified infectious disease; N31.9 Neuromuscular dysfunction of bladder, unspecified

== ENCOUNTER → 2018-07-12 | Outpatient (CLI) | payer MEDICARE, OTHER ==
[2018-07-12 15:50] LABS: PH-URINE 5.5 (5.0 - 8.0); URINE APPEARANCE CLOUDY; URINE BILIRUBIN NEGATIVE (NEGATIVE); URINE BLOOD 50 ery/uL (NEGATIVE); URINE COLOR YELLOW; URINE GLUCOSE NEGATIVE (NEGATIVE); URINE KETONE NEGATIVE (NEGATIVE); URINE LEUKOCYTE ESTERASE 2+ (NEGATIVE); URINE NITRATE NEGATIVE (NEGATIVE); URINE PROTEIN(semi-quant) 2+ mg/dL (NEGATIVE); URINE UROBILINOGEN NORMAL (NORMAL)
[2018-07-12 15:51] LABS: URINE WBC >50 /hpf (0-3)
== END ==
LOC: LAB 14:11
PROVIDERS: Family Medicine
DX: N31.9 Neuromuscular dysfunction of bladder, unspecified (principal); N39.0 Urinary tract infection, site not specified; B99.9 Unspecified infectious disease

== ENCOUNTER → 2018-08-08 | Outpatient (CLI) | payer MEDICARE, OTHER ==
[2018-08-09 13:02] LABS: URINE APPEARANCE HAZY; URINE BILIRUBIN NEGATIVE (NEGATIVE); URINE BLOOD TRACE (NEGATIVE); URINE COLOR YELLOW; URINE GLUCOSE NEGATIVE (NEGATIVE); URINE KETONE NEGATIVE (NEGATIVE); URINE LEUKOCYTE ESTERASE 2+ (NEGATIVE); URINE NITRATE POSITIVE (NEGATIVE); URINE PROTEIN(semi-quant) 1+ mg/dL (NEGATIVE); URINE UROBILINOGEN NORMAL (NORMAL); URINE WBC 31-50 /hpf (0-3)
== END ==
LOC: LAB 16:00
PROVIDERS: Family Medicine
DX: N30.00 Acute cystitis without hematuria (principal); B96.1 Klebsiella pneumoniae [K. pneumoniae] as the cause of diseases classified elsewhere; N31.9 Neuromuscular dysfunction of bladder, unspecified; R33.9 Retention of urine, unspecified

== ENCOUNTER → 2018-11-12 | Outpatient (CLI) | payer MEDICARE, OTHER ==
[2018-11-12 13:54] LABS: ALBUMIN 3.8 g/dL (3.4-4.8); CALCIUM 9.9 mg/dL (8.3-10.5); POTASSIUM 5.5 mmol/L (3.5-5.1); TOTAL BILIRUBIN 0.3 mg/dL (0.2-1.2); TOTAL PROTEIN 7.3 g/dL (6.2-8.1)
== END ==
LOC: LAB 13:25
PROVIDERS: Family Medicine
DX: I12.9 Hypertensive chronic kidney disease with stage 1 through stage 4 chronic kidney disease, or unspecified chronic kidney disease (principal); E11.22 Type 2 diabetes mellitus with diabetic chronic kidney disease; N18.3 Chronic kidney disease, stage 3 (moderate)

== ENCOUNTER → 2018-11-13 | Outpatient (CLI) | payer MEDICARE, OTHER ==
[2018-11-13 17:45] LABS: CALCIUM 9.4 mg/dL (8.3-10.5); POTASSIUM 5.7 mmol/L (3.5-5.1)
== END ==
LOC: LAB 17:10
PROVIDERS: Family Medicine
DX: E11.22 Type 2 diabetes mellitus with diabetic chronic kidney disease (principal); N18.3 Chronic kidney disease, stage 3 (moderate); E87.5 Hyperkalemia; N31.9 Neuromuscular dysfunction of bladder, unspecified; R33.9 Retention of urine, unspecified

== ENCOUNTER 2018-11-14 14:00 | Outpatient (RCR) | payer MEDICARE, OTHER | END 2018-11-14 14:30 | disposition still patient (30) | LOC: PT 14:00 | DX: M43.6 Torticollis (principal); R20.0 Anesthesia of skin ==

== ENCOUNTER → 2018-11-27 | Outpatient (CLI) | payer MEDICARE, OTHER ==
[2018-11-27 14:12] LABS: POTASSIUM 5.2 mmol/L (3.5-5.1)
[2018-11-27 14:13] LABS: CALCIUM 9.9 mg/dL (8.3-10.5)
== END ==
LOC: LAB 13:53
PROVIDERS: Family Medicine
DX: E87.5 Hyperkalemia (principal); N18.3 Chronic kidney disease, stage 3 (moderate)

== ENCOUNTER → 2019-01-02 | Outpatient (CLI) | payer MEDICARE, OTHER ==
[2019-01-02 14:40] LABS: ALBUMIN 3.5 g/dL (3.4-4.8); POTASSIUM 5.2 mmol/L (3.5-5.1)
[2019-01-02 14:41] LABS: CALCIUM 9.2 mg/dL (8.3-10.5)
[2019-01-02 14:43] LABS: TOTAL PROTEIN 7.1 g/dL (6.2-8.1)
[2019-01-02 14:44] LABS: TOTAL BILIRUBIN 0.4 mg/dL (0.2-1.2)
== END ==
LOC: LAB 13:08
PROVIDERS: Family Medicine
DX: Z12.5 Encounter for screening for malignant neoplasm of prostate (principal); E78.5 Hyperlipidemia, unspecified; N19 Unspecified kidney failure

== ENCOUNTER → 2019-01-22 | Outpatient (CLI) | payer MEDICARE, OTHER ==
[2019-01-22 15:54] LABS: HEMATOCRIT 41.4 % (42.0-52.0); HEMOGLOBIN 12.6 g/dL (13.5-18.0); MEAN CELL VOLUME 95 fl (78-100); MEAN CORPUSCULAR HEMOGLOBIN 29 pg (27-31); MEAN CORPUSCULAR HGB CONC 30 g/dL (33-37); MEAN PLATELET VOLUME 10.4 fl (7.4-10.4); PLATELET COUNT 199 K/mm3 (130-400); RED BLOOD COUNT 4.38 M/mm3 (4.20-5.60); RED CELL DISTRIBUTION WIDTH 14.8 % (11.5-14.5); WHITE BLOOD COUNT 5.3 K/mm3 (4.8-10.8)
[2019-01-22 16:45] LABS: LYMPHOCYTE 32 % (20-51); NEUTROPHILS 55 % (42-75)
[2019-01-22 16:46] LABS: MONOCYTE 6 % (3-10)
== END ==
LOC: LAB 15:01
PROVIDERS: Family Medicine
DX: Z00.00 Encounter for general adult medical examination without abnormal findings (principal); E11.40 Type 2 diabetes mellitus with diabetic neuropathy, unspecified; I35.0 Nonrheumatic aortic (valve) stenosis; E11.22 Type 2 diabetes mellitus with diabetic chronic kidney disease; N18.3 Chronic kidney disease, stage 3 (moderate); I27.20 Pulmonary hypertension, unspecified; N31.9 Neuromuscular dysfunction of bladder, unspecified; J44.9 Chronic obstructive pulmonary disease, unspecified

== ENCOUNTER 2019-05-04 23:19 | Emergency (ER) | payer MEDICARE, OTHER ==
[2019-05-05 00:30] LABS: HEMATOCRIT 38.9 % (42.0-52.0); HEMOGLOBIN 11.6 g/dL (13.5-18.0); MEAN CELL VOLUME 98 fl (78-100); MEAN CORPUSCULAR HEMOGLOBIN 29 pg (27-31); MEAN CORPUSCULAR HGB CONC 30 g/dL (33-37); MEAN PLATELET VOLUME 9.8 fl (7.4-10.4); PLATELET COUNT 180 K/mm3 (130-400); RED BLOOD COUNT 3.98 M/mm3 (4.20-5.60); RED CELL DISTRIBUTION WIDTH 14.3 % (11.5-14.5)
[2019-05-05 00:39] LABS: ALBUMIN 3.5 g/dL (3.4-4.8)
[2019-05-05 00:41] LABS: CALCIUM 9.4 mg/dL (8.3-10.5)
[2019-05-05 00:42] LABS: LYMPHOCYTE 20 % (20-51); MONOCYTE 10 % (3-10); NEUTROPHILS 69 % (42-75); TOTAL PROTEIN 7.2 g/dL (6.2-8.1)
[2019-05-05 00:44] LABS: TOTAL BILIRUBIN 0.5 mg/dL (0.2-1.2)
[2019-05-05 00:55] LABS: TROPONIN-I 0.03 ng/mL (<0.030)
[2019-05-05 01:06] LABS: D-DIMER 1.99 mg/L FEU (0.15-0.50)
[2019-05-05 01:19] LABS: URINE APPEARANCE CLOUDY; URINE BILIRUBIN NEGATIVE (NEGATIVE); URINE BLOOD NEGATIVE (NEGATIVE); URINE COLOR YELLOW; URINE GLUCOSE NEGATIVE (NEGATIVE); URINE KETONE NEGATIVE (NEGATIVE); URINE LEUKOCYTE ESTERASE NEGATIVE (NEGATIVE); URINE NITRATE NEGATIVE (NEGATIVE); URINE PROTEIN(semi-quant) 2+ mg/dL (NEGATIVE); URINE UROBILINOGEN NORMAL (NORMAL); URINE WBC 0-1 /hpf (0-3)
[2019-05-05] MEDS ORDERED: SOTALOL HYDROCH80 MG PO (02:24)
[2019-05-05 02:33] VITALS: BP 130/72
== END 2019-05-05 02:35 | disposition other institution (70) ==
LOC: ED 23:19
PROVIDERS: Family Medicine
DX: J96.20 Acute and chronic respiratory failure, unspecified whether with hypoxia or hypercapnia (principal); E11.9 Type 2 diabetes mellitus without complications; E66.01 Morbid (severe) obesity due to excess calories; G47.30 Sleep apnea, unspecified; J44.9 Chronic obstructive pulmonary disease, unspecified; I50.9 Heart failure, unspecified; I27.20 Pulmonary hypertension, unspecified; Z98.890 Other specified postprocedural states; Z79.82 Long term (current) use of aspirin; Z79.84 Long term (current) use of oral hypoglycemic drugs; Z79.51 Long term (current) use of inhaled steroids
CPT/HCPCS: A4340; A4618; J1650; J1940

== ENCOUNTER 2019-05-05 02:24 | Inpatient (IN) | payer MEDICARE, OTHER ==
[~2019-05-05] VITALS: Ht 172.7 cm; Wt 127.2 kg
[2019-05-05] VITALS (8 sets, daily range): BP systolic 94–154; BP diastolic 46–73
[~2019-05-05 02:24] MED LIST changes: +SOTALOL HYDROCH80 MG PO
--- NOTE | 2019-05-05 07:20 | NUR ---
report received from roger rose rn this nurse and denisa packer assuming patient care. patient on bipap machine. fi02 50%. epap 18. ipap 8. patient awake and alert.
--- NOTE | 2019-05-05 08:00 | NUR ---
patient placed on nasal cannula for breakfast. took approximately 5min to recover transition from bipap to cannula. sp02 83% in beginning. oxygen up to 5l for patient to recover. once recovered lowered oxygen to 4L. sp02 90%.
[2019-05-05 09:15] LABS: HEMATOCRIT 36.3 % (42.0-52.0); HEMOGLOBIN 10.7 g/dL (13.5-18.0); MEAN CELL VOLUME 98 fl (78-100); MEAN CORPUSCULAR HEMOGLOBIN 29 pg (27-31); MEAN CORPUSCULAR HGB CONC 30 g/dL (33-37); MEAN PLATELET VOLUME 10.3 fl (7.4-10.4); PLATELET COUNT 151 K/mm3 (130-400); RED BLOOD COUNT 3.69 M/mm3 (4.20-5.60); RED CELL DISTRIBUTION WIDTH 14.3 % (11.5-14.5); WHITE BLOOD COUNT 7.8 K/mm3 (4.8-10.8)
--- NOTE | 2019-05-05 09:15 | NUR ---
SPOKE TO Surya HERNANDEZ APRN IN PERSON AND NOTIFIED HER THAT PATIENT'S BLOOD PRESSURE IS 107/58 AND HE IS TO RECEIVE METOPROLOL, SOTALOL, AMLODIPINE, AND IV LASIX. ORDERS RECEIVED TO RESCHEDULE THE METOPROLOL AND AMLODIPINE AND RECHECK BLOOD PRESSURE IN 4 HOURS. ORDER RECEIVED THAT IT IS OKAY TO GIVE LASIX AND SOTALOL AT THIS TIME. PT'S HR IS 72. Surya HERNANDEZ APRN IS ALSO NOTIFIED OF PT'S TEMP OF 100.6 ORALLY AT THIS TIME WITH NO MEDICATION ORDERED TO GIVE TO DECREASE TEMP.
[2019-05-05 09:17] LABS: POTASSIUM 5.1 mmol/L (3.5-5.1)
[2019-05-05 09:18] LABS: CALCIUM 8.8 mg/dL (8.3-10.5)
--- NOTE | 2019-05-05 09:20 | NUR ---
patient placed on trilogy machine per kathy argueta aprn's orders. trilogy settings as follows: avaps ae mode, tidal volume target of 560, fi02 36%. epap max 15, epap min 5. apnea alarm at 30 secs. patient tolerating trilogy okay. sp02 90-91%. heart rate in the 50's.
[2019-05-05 09:42] LABS: LYMPHOCYTE 21 % (20-51); MONOCYTE 8 % (3-10); NEUTROPHILS 66 % (42-75)
--- NOTE | 2019-05-05 13:21 | NUR ---
Met with pt to discuss discharge plans. Pt currently lives in [facility] with his . Next of Kin is his , Jenn, phone # [phone]. States that she is in fairly good health but just had TKA. States that they live is a multi-level home but that the main bedroom and bathroom are on the main level with only one step to enter the home. DME: cane, 4WW with breaks, electric scooter, arm crutch. States that he primarily uses his cane and crutch when ambulating in the home. Also reports that he is on O2 chronically, baseline of 3L via NC, and that he uses a CPAP at bedtime. Pt in unsure of the name of the company that supplies his O2. He thinks he may need a BiPAP at home at discharge. Pt is followed by Dr. Hernandez (Pulmonology) and wants to make sure he is aware of any changes at discharge. Pt plans to return home with his upon discharge. He gets his prescriptions at [facility] and denies any financial concerns at this time. Pt states that he has a DPOA for health care and that he will ask his to bring a copy up to the hospital later today. Pt denies any further questions or concerns at this time. Case Management will continue to follow for discharge planning.
--- NOTE | 2019-05-05 14:00 | NUR ---
patient's heart rate down to 41-43. sp02 91%. this nurse in patient's room. patient noted to be on nasal cannula at 6L oxygen. patient sitting up in recliner head down eyes closed. respirations very shallow. patient does not arouse to verbal stimuli or when this nurse puts hand on shoulder to wake up. patient opens eyes to sternal rub.eyes half open and has difficulty keeping eyes open. obtundent. this nurse asked patient if he was feeling okay patient states "yeah" and falls back to sleep. increased tidal volume to 620 per trilogy recommended settings chart stating patient's tidal volume target to be between 8-10 ml/kg of ideal body weight. patient placed on fi02 36%. patient's oxygen 90-91%. heart rate 44-45. kathy argueta aprn notified.
--- NOTE | 2019-05-05 14:00 | NUR ---
patient's heart rate down to 41-43. sp02 91%. this nurse in patient's room. patient noted to be on nasal cannula at 6L oxygen. patient sitting up in recliner head down eyes closed. respirations very shallow. patient does not arouse to verbal stimuli or when this nurse puts hand on shoulder to wake up. patient opens eyes to sternal rub.eyes half open and has difficulty keeping eyes open. this nurse asked patient if he was feeling okay patient states "yeah" and falls back to sleep. increased tidal volume to 620 per trilogy recommended settings chart stating patient's tidal volume target to be between 8-10 ml/kg of ideal body weight. patient placed on fi02 36%. patient's oxygen 90-91%. heart rate 44-45. kathy argueta aprn notified.
--- NOTE | 2019-05-05 14:50 | NUR ---
patient's sp02 85%. patient's trilogy machine noted to have fio2 setting on 28%. heart rate 39. fi02 increased to 36. tidal volume lowered to 560. patient remains difficult to arouse. requiring sternal rub to open eyes. quickly falls back to sleep. obtundent. lips have bluish coloring. kathy argueta aprn notified of patient's continued difficutly arousing and low heart rate/sp02. notified that patient has only had 300 mls of urine output this shift and that abdomen appears to be even more distended. patient has palpable firm area to left side of abdomen. kathy argueta aprn orders labs. states that heart rate is from the sotalol. requested that provider come see patient. reported that she saw patient this morning.
--- NOTE | 2019-05-05 14:50 | NUR ---
patient's sp02 85%. patient's trilogy machine noted to have fio2 setting on . heart rate 39. fi02 increased to 36. tidal volume lowered to 560. patient remains difficult to arouse. requiring sternal rub to open eyes. quickly falls back to sleep. obtundent. lips have bluish coloring. kathy argueta aprn notified of patient's continued difficutly arousing and low heart rate/sp02. notified that patient has only had 300 mls of urine output this shift and that abdomen appears to be even more distended. patient has palpable firm area to left side of abdomen. kathy argueta aprn orders labs. states that heart rate is from the sotalol. requested that provider come see patient. reported that she saw patient this morning.
--- NOTE | 2019-05-05 15:05 | NUR ---
kathy argueta research aide in to see patient at this time.
--- NOTE | 2019-05-05 15:05 | NUR ---
kathy argueta aeronautical design engineer in to see patient at this time per nursing request.
--- NOTE | 2019-05-05 15:40 | NUR ---
patient's sp02 95% on fi02 of 36%. heart rate 44. lowered patient's fio2 to 32%. patient in chair with eyes open at this time.
--- NOTE | 2019-05-05 16:26 | NUR ---
patient's heart rate 39-40. sp02 88-90% on 32% fi02. upon walking in room. patient slouched over in recliner. eyes closed. patient arousable to sternal rub. opens eyes and immediately closes them again. mask readjusted. kathy argueta aprn notified. no new orders.
[2019-05-05 16:41] LABS: EOS # 0.4 (0.04-0.40); HEMATOCRIT 36.8 % (42.0-52.0); HEMOGLOBIN 10.8 g/dL (13.5-18.0); LYMPH# 1.7 (1.50-4.00); MEAN CELL VOLUME 98 fl (78-100); MEAN CORPUSCULAR HEMOGLOBIN 29 pg (27-31); MEAN PLATELET VOLUME 9.9 fl (7.4-10.4); MONO # 0.8 (0.20-0.80); NEU # 3.9 (1.40-6.50); PLATELET COUNT 168 K/mm3 (130-400); RED BLOOD COUNT 3.75 M/mm3 (4.20-5.60); RED CELL DISTRIBUTION WIDTH 14.5 % (11.5-14.5); WHITE BLOOD COUNT 6.8 K/mm3 (4.8-10.8)
[2019-05-05 16:42] LABS: EOS % 5.9 % (0.0-4.0); MEAN CORPUSCULAR HGB CONC 29 g/dL (33-37)
[2019-05-05 16:46] LABS: ALBUMIN 3.2 g/dL (3.4-4.8)
[2019-05-05 16:48] LABS: CALCIUM 8.9 mg/dL (8.3-10.5)
[2019-05-05 16:49] LABS: TOTAL PROTEIN 6.7 g/dL (6.2-8.1)
[2019-05-05 16:51] LABS: TOTAL BILIRUBIN 0.4 mg/dL (0.2-1.2)
--- NOTE | 2019-05-05 17:30 | NUR ---
patient more alert. wakes up enough to transfer from chair to bed. sp02 92%. heart rate in the upper to lower 50's.
--- NOTE | 2019-05-05 17:53 | NUR ---
AT 1300 TODAY PATIENT NOTED TO BE LETHARGIC, DIFFICULT TO AROUSE. Surya HERNANDEZ APRN NOTIFIED OF CHANGE. NO NEW ORDERS RECEIVED. RESPIRATORY STATUS MONITORED. PATIENT REMAINS ON TRILOGY WITH AVAPS SETTING IN PLACE. WILL CONTINUE TO MONITOR.
--- NOTE | 2019-05-05 19:00 | NUR ---
patient's sp02 91-92%. heart rate up to 55-58. remains on fi02 of 32%. patient tolerating well. patient awake and conversating in bed.
--- NOTE | 2019-05-05 20:33 | NUR ---
kathy argueta child day care teacher in to see patient at this time per nursing request
[2019-05-06] VITALS (7 sets, daily range): BP systolic 131–168; BP diastolic 63–82
--- NOTE | 2019-05-06 05:57 | NUR ---
Pt sitting in recliner. Trilogy was removed and pt placed on 3L O2 per nasal canula. Pt states feeling much better lung sounds clear and no shortness of breath. Pt has maintained a SaO2 above 94% during the night. Explained to pt that if he can maintain SaO2 at 93% with no shortness of breath he can remain on nasal canula. Pt states that he understands and is agreable to the plan. Pt stastes he will call his and ask her to bring his cpap machine from home. Pt remarks on how uncomfortabl the trilogy mask was to wear during the night.
--- NOTE | 2019-05-06 07:00 | NUR ---
Report provided from RAMONA Zavala.
[2019-05-06 07:14] LABS: EOS # 0.4 (0.04-0.40); HEMOGLOBIN 11.1 g/dL (13.5-18.0); LYMPH# 1.4 (1.50-4.00); MEAN CELL VOLUME 97 fl (78-100); MEAN CORPUSCULAR HEMOGLOBIN 29 pg (27-31); MEAN CORPUSCULAR HGB CONC 30 g/dL (33-37); MONO # 0.9 (0.20-0.80); NEU # 4.8 (1.40-6.50); PLATELET COUNT 166 K/mm3 (130-400); RED BLOOD COUNT 3.81 M/mm3 (4.20-5.60); RED CELL DISTRIBUTION WIDTH 14.3 % (11.5-14.5); WHITE BLOOD COUNT 7.5 K/mm3 (4.8-10.8)
[2019-05-06 07:15] LABS: EOS % 5.3 % (0.0-4.0)
[2019-05-06 07:16] LABS: ALBUMIN 3.2 g/dL (3.4-4.8)
[2019-05-06 07:17] LABS: CALCIUM 9.1 mg/dL (8.3-10.5)
[2019-05-06 07:18] LABS: TOTAL PROTEIN 6.7 g/dL (6.2-8.1)
[2019-05-06 07:20] LABS: TOTAL BILIRUBIN 0.5 mg/dL (0.2-1.2)
--- NOTE | 2019-05-06 08:30 | NUR ---
Patient sitting in chair eating breakfast. Patient showed no distress or labored breathing however, lips bluish. Educated on need to wear trilogy. O2 back up. Critical CO2 at 54. Patient was not wearing trilogy as eating. Howard in place and urine yellow/clear. Patient shows bilateral edema, non-pitting. Reddened bruise or scar on R polanco. No pain. Patient pleasant. Feet elevated.
--- NOTE | 2019-05-06 10:54 | NUR ---
Patient was fit for new trilogy mask that gave him the appropriate, comfortable fit. Last night he was not able to keep trilogy on due to ill fitting mask. Marisol Bhagat/Maykel PARSONS was in to see patient earlier this morn, she spoke to him regarding using the trilogy at night and during naps, and for most of the day for now. She also stated that she believes an order for trilogy for home would be considered. Patient denies and pain, SOB or symptoms from SOB.
--- NOTE | 2019-05-06 18:15 | NUR ---
Patient sitting in chair. Patient's present all afternoon.n Patient's facial coloring pink, no blue lips. O2 sats maintained around 91-92% this afternoon. Patient in bed early this afternoon for ordered echo. Unable to doc Bipap/cpap check readings for trilogy as patient was getting an echo. Patient moved to chair for dinner and O2 via nasal cannula at 3L.
--- NOTE | 2019-05-06 19:25 | NUR ---
Report off to RAMONA Harrison.
--- NOTE | 2019-05-06 20:00 | NUR ---
ASSMNT COMPLETE, PT HAS NO C/O PAIN OR DISCOMFORT, SLEEPING UPON ARRIVAL TO ROOM, WAKENS EASILY BUT FALLS ASLEEP QUICKLY DURING ASSMNT, GIVEN BREATHING TREATMENT, WAS VERY CONFUSED WHAT IT WAS FOR OR HOW TO USE IT, AFTER TAKING MEDS STATES, "AFTER TAKING 2 PILLS, I'M A TURKEY!", UNSURE IF PT IS SERIOUS, BUT DOES NOT SEEM FULLY ALERT, NO REQUESTS, CALL LIGHT W/I REACH
[2019-05-07 03:24] VITALS: BP 143/47
[2019-05-07 06:15] LABS: CALCIUM 9.1 mg/dL (8.3-10.5)
[2019-05-07 06:24] VITALS: BP 150/74
[2019-05-07 11:16] VITALS: BP 161/77
--- NOTE | 2019-05-07 12:23 | NUR ---
Dr. Esquivel and Emilie Yin (providers) in to see this patient at this time.
[2019-05-07 15:04] VITALS: BP 133/70
--- NOTE | 2019-05-07 16:53 | NUR ---
SPOKE WITH DR. AGUILA OVER THE PHONE REGARDING METFORMIN ORDER BOTH 1000MG AND 500MG DOSES WERE ORDERED. DR. AGUILA STATED THAT HE WOULD LIKE HIM TO TAKE THE 500MG DOSE AND WILL STOP THE 1000MG DOSE.
[2019-05-07 18:09] VITALS: BP 131/68
--- NOTE | 2019-05-07 19:20 | NUR ---
Report received from Alison Granger RN
--- NOTE | 2019-05-07 20:30 | NUR ---
Resting in recliner awake and a/o x 3. Wearing oxygen at 3L/NC. Denies having any pain, SOB.
[2019-05-07 22:50] VITALS: BP 177/75
[2019-05-08 02:52] VITALS: BP 159/73
--- NOTE | 2019-05-08 03:41 | NUR ---
C/o of sore throat, given tylenol 1000mg PO. Continues to be on tele-monitor and continues to wear trilogy mask with continuous oxygen bleed in. FIO2 28%. 0330 assist pt with reposition self up in bed.
--- NOTE | 2019-05-08 06:00 | NUR ---
Q hourly checks done, has been resting in bed, eyes closed with even respirations. Has worn trilogy mask through out the night and readjusted his own nose mask. At 0540 Pt transfered from bed to recliner. One person assist, gait steady, used walker and interventional pain physician socks on.
[2019-05-08 06:20] VITALS: BP 163/81
--- NOTE | 2019-05-08 07:10 | NUR ---
Report given to Jamia Dunne RN and Sonya Fischer RN
--- NOTE | 2019-05-08 07:35 | NUR ---
AWAKE AND SITTING IN CHAIR. OXYGEN DECREASED FROM 3LPM TO 2LPM; SATURATIONS UPPER 90'S. USED TRILOGY DURING NIGHT AND HAS QUESTIONS REGARDING MACHINE. EDUCATION PROVIDED. REPORTS THAT HIS PSORIASIS HAS DECREASED SINCE HOSPITAL ADMIT. RESP EVEN AND UNLABORED. LUNG SOUNDS VERY DIMINISHED THROUGHOUT. ABD ROUND AND TIGHT; NO EDEMA NOTED. WU CATH INTACT TO DD. LE EDEMA NOTED. STRONG PEDAL PULSES BILAT. CALL LIGHT IN REACH.
[2019-05-08 08:44] LABS: CALCIUM 9.6 mg/dL (8.3-10.5)
--- NOTE | 2019-05-08 09:37 | NUR ---
JAZMIN HANKS DC. TO SHOWER WITH MOTOR VEHICLE ASSEMBLY SUPERVISOR ASSIST.
--- NOTE | 2019-05-08 09:48 | NUR ---
DC ACUTE. ADMIT SWING BED.
== END 2019-05-08 09:48 | disposition swing bed (61) | DRG 189 ==
LOC: MED/SURG 02:24
PROVIDERS: Family Medicine; Nurse Practitioner Primary Care; ADMIT Family Medicine
DX: J96.22 Acute and chronic respiratory failure with hypercapnia (principal); Z68.41 Body mass index [BMI] 40.0-44.9, adult; E87.2 Acidosis; E66.2 Morbid (severe) obesity with alveolar hypoventilation; J96.21 Acute and chronic respiratory failure with hypoxia; R33.9 Retention of urine, unspecified; I27.81 Cor pulmonale (chronic); J44.9 Chronic obstructive pulmonary disease, unspecified; I95.9 Hypotension, unspecified; E11.9 Type 2 diabetes mellitus without complications; R00.1 Bradycardia, unspecified; I27.20 Pulmonary hypertension, unspecified; I50.9 Heart failure, unspecified; Z79.84 Long term (current) use of oral hypoglycemic drugs; Z79.82 Long term (current) use of aspirin; Z99.81 Dependence on supplemental oxygen
CPT/HCPCS: A4216; A7027; J0696; J1650; J1940; Q9967

== ENCOUNTER 2019-05-08 09:37 | Inpatient (IN) | payer MEDICARE, OTHER ==
[~2019-05-08] VITALS: Ht 172.7 cm; Wt 125.0 kg
[2019-05-08 11:40] VITALS: BP 146/66
[2019-05-08 18:44] VITALS: BP 129/68
[2019-05-09 06:15] VITALS: BP 168/79
[2019-05-09 07:02] LABS: POTASSIUM 4.9 mmol/L (3.5-5.1)
[2019-05-09 07:03] LABS: CALCIUM 9.2 mg/dL (8.3-10.5)
[2019-05-09 18:02] VITALS: BP 129/69
[2019-05-10 06:29] VITALS: BP 157/88
[2019-05-10 10:58] VITALS: BP 137/71
[2019-05-10 18:50] VITALS: BP 130/63
[2019-05-11 06:27] VITALS: BP 141/85
[2019-05-11 18:50] VITALS: BP 120/65
[2019-05-12 05:58] VITALS: BP 134/81
[2019-05-12 18:24] VITALS: BP 132/72
[2019-05-13 06:25] VITALS: BP 131/70
[2019-05-13 09:41] LABS: CALCIUM 9.5 mg/dL (8.3-10.5)
[2019-05-13 10:19] LABS: HEMATOCRIT 40.7 % (42.0-52.0); HEMOGLOBIN 12.2 g/dL (13.5-18.0); MEAN CELL VOLUME 94 fl (78-100); MEAN CORPUSCULAR HEMOGLOBIN 28 pg (27-31); MEAN CORPUSCULAR HGB CONC 30 g/dL (33-37); MEAN PLATELET VOLUME 9.7 fl (7.4-10.4); PLATELET COUNT 284 K/mm3 (130-400); RED BLOOD COUNT 4.34 M/mm3 (4.20-5.60); WHITE BLOOD COUNT 6.7 K/mm3 (4.8-10.8)
[2019-05-13 10:26] LABS: LYMPHOCYTE 33 % (20-51); MONOCYTE 6 % (3-10); NEUTROPHILS 56 % (42-75)
[2019-05-13 18:09] VITALS: BP 126/72
[2019-05-14 05:58] VITALS: BP 135/70
[2019-05-14] MEDS ORDERED: GLUCOPHAGE PO (07:54)
[2019-05-14] MEDS ORDERED: METOPROLOL SUCC25 M1 PO (07:55)
[2019-05-14] MEDS ORDERED: IPRATROPIUM BROM3 M1 IH (07:56)
[2019-05-14] MEDS ORDERED: GLUCOTROL 5M5 MG/TAB PO (08:30)
[2019-05-14] MEDS ORDERED: BETAPACE80 M1 PO (09:08)
== END 2019-05-14 13:42 | disposition home health service (06) | DRG 947 ==
LOC: MED/SURG 09:37
PROVIDERS: Nurse Practitioner Primary Care; ADMIT Nurse Practitioner
DX: R53.81 Other malaise (principal); G95.11 Acute infarction of spinal cord (embolic) (nonembolic); J96.20 Acute and chronic respiratory failure, unspecified whether with hypoxia or hypercapnia; N31.9 Neuromuscular dysfunction of bladder, unspecified; J44.9 Chronic obstructive pulmonary disease, unspecified; E66.01 Morbid (severe) obesity due to excess calories; I50.9 Heart failure, unspecified; N40.1 Benign prostatic hyperplasia with lower urinary tract symptoms; R33.8 Other retention of urine; R00.1 Bradycardia, unspecified; I48.91 Unspecified atrial fibrillation; E11.40 Type 2 diabetes mellitus with diabetic neuropathy, unspecified; Z79.82 Long term (current) use of aspirin; Z79.84 Long term (current) use of oral hypoglycemic drugs; Z87.891 Personal history of nicotine dependence; Z88.2 Allergy status to sulfonamides; Z88.5 Allergy status to narcotic agent; Z88.8 Allergy status to other drugs, medicaments and biological substances
CPT/HCPCS: J1650

== ENCOUNTER → 2019-05-16 | Outpatient (CLI) | payer MEDICARE, OTHER ==
[2019-05-14 05:58] VITALS: BP 135/70
[~2019-05-16] MED LIST changes: +BETAPACE80 M1 PO; +GLUCOPHAGE PO; +IPRATROPIUM BROM3 M1 IH
--- NOTE | 2019-05-16 13:35 | NUR ---
Pt here for EKG. Pt asks questions about whether he is to be on 2 or 3 liters of oxygen at home since his discharge from hospital 05/14/19. Pt has been running 92% on 3 l/NC at home and reports feels/doing well. Pt encouraged to f/u with PCP to definitive answer but to decrease oxygen to 2 L/NC if his sp02 gets mid to high 90's (due to COPD). Pt reports he will continue to monitor his oxygen numbers at home. EKG faxed to Dr. Dey's office as ordered.
== END ==
LOC: AMSURD 13:12
DX: I47.2 Ventricular tachycardia (principal); I49.9 Cardiac arrhythmia, unspecified

== ENCOUNTER → 2019-07-10 | Outpatient (CLI) | payer MEDICARE, OTHER ==
[2019-07-10 11:34] LABS: POTASSIUM 4.5 mmol/L (3.5-5.1)
[2019-07-10 11:34] LABS: URINE APPEARANCE CLOUDY; URINE COLOR YELLOW
[2019-07-10 11:35] LABS: URINE BILIRUBIN NEGATIVE (NEGATIVE); URINE BLOOD 50 ery/uL (NEGATIVE); URINE GLUCOSE NEGATIVE (NEGATIVE); URINE KETONE NEGATIVE (NEGATIVE); URINE LEUKOCYTE ESTERASE 1+ (NEGATIVE); URINE MUCUS PRESENT (NOT PRESENT); URINE NITRATE NEGATIVE (NEGATIVE); URINE PROTEIN(semi-quant) 3+ mg/dL (NEGATIVE); URINE UROBILINOGEN NORMAL (NORMAL); URINE WBC 31-50 /hpf (0-3)
[2019-07-10 11:35] LABS: CALCIUM 9.3 mg/dL (8.3-10.5)
[2019-07-10 11:37] LABS: EOS # 0.3 (0.04-0.40); EOS % 2.7 % (0.0-4.0); HEMATOCRIT 39.6 % (42.0-52.0); HEMOGLOBIN 11.9 g/dL (13.5-18.0); LYMPH# 1.9 (1.50-4.00); MEAN CELL VOLUME 96 fl (78-100); MEAN CORPUSCULAR HEMOGLOBIN 29 pg (27-31); MEAN CORPUSCULAR HGB CONC 30 g/dL (33-37); MEAN PLATELET VOLUME 10.6 fl (7.4-10.4); MONO # 1.3 (0.20-0.80); NEU # 8.8 (1.40-6.50); PLATELET COUNT 170 K/mm3 (130-400); RED BLOOD COUNT 4.13 M/mm3 (4.20-5.60); RED CELL DISTRIBUTION WIDTH 15.1 % (11.5-14.5); WHITE BLOOD COUNT 12.4 K/mm3 (4.8-10.8)
== END ==
LOC: LAB 10:52
PROVIDERS: Family Medicine
DX: N18.3 Chronic kidney disease, stage 3 (moderate) (principal); H60.592 Other noninfective acute otitis externa, left ear

== ENCOUNTER → 2019-07-18 | Outpatient (CLI) | payer MEDICARE, OTHER ==
[2019-07-18 15:27] LABS: EOS # 0.5 (0.04-0.40); HEMATOCRIT 42.3 % (42.0-52.0); HEMOGLOBIN 12.6 g/dL (13.5-18.0); LYMPH# 1.7 (1.50-4.00); MEAN CELL VOLUME 95 fl (78-100); MEAN CORPUSCULAR HEMOGLOBIN 28 pg (27-31); MEAN CORPUSCULAR HGB CONC 30 g/dL (33-37); MEAN PLATELET VOLUME 9.4 fl (7.4-10.4); MONO # 0.5 (0.20-0.80); PLATELET COUNT 254 K/mm3 (130-400); RED BLOOD COUNT 4.46 M/mm3 (4.20-5.60); RED CELL DISTRIBUTION WIDTH 14.2 % (11.5-14.5); WHITE BLOOD COUNT 6.7 K/mm3 (4.8-10.8)
[2019-07-18 15:28] LABS: EOS % 7.8 % (0.0-4.0)
[2019-07-18 15:31] LABS: POTASSIUM 5.4 mmol/L (3.5-5.1)
== END ==
LOC: LAB 14:51
PROVIDERS: Family Medicine
DX: I12.9 Hypertensive chronic kidney disease with stage 1 through stage 4 chronic kidney disease, or unspecified chronic kidney disease (principal); N18.3 Chronic kidney disease, stage 3 (moderate)

== ENCOUNTER → 2019-08-01 | Outpatient (CLI) | payer MEDICARE, OTHER ==
[2019-08-01 15:58] LABS: URINE APPEARANCE CLOUDY; URINE COLOR YELLOW
[2019-08-01 15:59] LABS: URINE BILIRUBIN NEGATIVE (NEGATIVE); URINE BLOOD TRACE (NEGATIVE); URINE GLUCOSE NEGATIVE (NEGATIVE); URINE KETONE NEGATIVE (NEGATIVE); URINE LEUKOCYTE ESTERASE 2+ (NEGATIVE); URINE NITRATE POSITIVE (NEGATIVE); URINE PROTEIN(semi-quant) 2+ mg/dL (NEGATIVE); URINE UROBILINOGEN NORMAL (NORMAL); URINE WBC >50 /hpf (0-3)
[2019-08-01 16:00] LABS: URINE MUCUS PRESENT (NOT PRESENT)
[2019-08-01 17:23] LABS: POTASSIUM 4.8 mmol/L (3.5-5.1)
[2019-08-01 17:25] LABS: CALCIUM 8.8 mg/dL (8.3-10.5)
== END ==
LOC: LAB 12:38
PROVIDERS: Family Medicine
DX: N18.3 Chronic kidney disease, stage 3 (moderate) (principal); E87.5 Hyperkalemia

== ENCOUNTER → 2019-09-23 | Outpatient (CLI) | payer MEDICARE, OTHER | LOC: LAB 15:35 | PROVIDERS: Family Medicine | DX: E13.9 Other specified diabetes mellitus without complications (principal); N28.9 Disorder of kidney and ureter, unspecified ==

== ENCOUNTER → 2020-01-30 | Outpatient (CLI) | payer MEDICARE, OTHER ==
[2020-01-30 12:47] LABS: POTASSIUM 5.3 mmol/L (3.5-5.1)
[2020-01-30 12:48] LABS: ALBUMIN 3.6 g/dL (3.4-4.8)
[2020-01-30 12:49] LABS: CALCIUM 9.3 mg/dL (8.3-10.5)
[2020-01-30 12:50] LABS: TOTAL PROTEIN 7.2 g/dL (6.2-8.1)
[2020-01-30 12:52] LABS: TOTAL BILIRUBIN 0.3 mg/dL (0.2-1.2)
== END ==
LOC: LAB 12:20
PROVIDERS: Family Medicine
DX: Z12.5 Encounter for screening for malignant neoplasm of prostate (principal); E13.9 Other specified diabetes mellitus without complications; N19 Unspecified kidney failure; E78.5 Hyperlipidemia, unspecified

== ENCOUNTER → 2020-02-14 | Outpatient (CLI) | payer MEDICARE, OTHER ==
[2020-02-14 16:20] LABS: EOS # 0.1 (0.04-0.40); HEMATOCRIT 39.8 % (42.0-52.0); LYMPH# 1.7 (1.50-4.00); MEAN CELL VOLUME 97 fl (78-100); MEAN CORPUSCULAR HEMOGLOBIN 29 pg (27-31); MEAN CORPUSCULAR HGB CONC 30 g/dL (33-37); MEAN PLATELET VOLUME 9.6 fl (7.4-10.4); MONO # 1.2 (0.20-0.80); PLATELET COUNT 202 K/mm3 (130-400); RED CELL DISTRIBUTION WIDTH 14.4 % (11.5-14.5); WHITE BLOOD COUNT 12.2 K/mm3 (4.8-10.8)
[2020-02-14 16:21] LABS: NEU # 9.2 (1.40-6.50)
[2020-02-14 16:30] LABS: ALBUMIN 3.4 g/dL (3.4-4.8)
[2020-02-14 16:32] LABS: CALCIUM 9.1 mg/dL (8.3-10.5)
[2020-02-14 16:33] LABS: TOTAL PROTEIN 6.7 g/dL (6.2-8.1)
[2020-02-14 16:35] LABS: TOTAL BILIRUBIN 0.4 mg/dL (0.2-1.2)
== END ==
LOC: LAB 16:10
PROVIDERS: Physician Assistant
DX: N39.0 Urinary tract infection, site not specified (principal)

== ENCOUNTER → 2020-03-03 | Day surgery (SDC) | payer MEDICARE, OTHER | LOC: MSO 09:05 | DX: E11.36 Type 2 diabetes mellitus with diabetic cataract (principal); H25.11 Age-related nuclear cataract, right eye; M19.90 Unspecified osteoarthritis, unspecified site; I13.0 Hypertensive heart and chronic kidney disease with heart failure and stage 1 through stage 4 chronic kidney disease, or unspecified chronic kidney disease; I50.9 Heart failure, unspecified; J44.9 Chronic obstructive pulmonary disease, unspecified; E78.00 Pure hypercholesterolemia, unspecified; G47.33 Obstructive sleep apnea (adult) (pediatric); I48.91 Unspecified atrial fibrillation; Q25.6 Stenosis of pulmonary artery; E11.22 Type 2 diabetes mellitus with diabetic chronic kidney disease; N18.9 Chronic kidney disease, unspecified; Z88.5 Allergy status to narcotic agent; Z88.8 Allergy status to other drugs, medicaments and biological substances; Z79.82 Long term (current) use of aspirin; Z79.84 Long term (current) use of oral hypoglycemic drugs; Z85.828 Personal history of other malignant neoplasm of skin | CPT/HCPCS: 00142; J0171; J2250; V2632 ==

== ENCOUNTER → 2020-03-08 | Outpatient (CLI) | payer MEDICARE, OTHER ==
[2020-03-08 13:46] LABS: URINE APPEARANCE HAZY; URINE BILIRUBIN NEGATIVE (NEGATIVE); URINE COLOR YELLOW; URINE GLUCOSE NEGATIVE (NEGATIVE); URINE KETONE NEGATIVE (NEGATIVE); URINE PROTEIN(semi-quant) 3+ mg/dL (NEGATIVE); URINE UROBILINOGEN NORMAL (NORMAL)
[2020-03-08 13:47] LABS: URINE BLOOD TRACE (NEGATIVE); URINE LEUKOCYTE ESTERASE 2+ (NEGATIVE); URINE MUCUS PRESENT (NOT PRESENT); URINE NITRATE POSITIVE (NEGATIVE); URINE WBC >50 /hpf (0-3)
== END ==
LOC: LAB 13:24
PROVIDERS: Family Medicine
DX: N19 Unspecified kidney failure (principal)

== ENCOUNTER → 2020-03-11 | Outpatient (CLI) | payer MEDICARE, OTHER ==
[2020-03-11 12:33] LABS: URINE APPEARANCE CLEAR; URINE COLOR YELLOW
[2020-03-11 12:34] LABS: URINE BILIRUBIN NEGATIVE (NEGATIVE); URINE BLOOD NEGATIVE (NEGATIVE); URINE GLUCOSE NEGATIVE (NEGATIVE); URINE KETONE NEGATIVE (NEGATIVE); URINE LEUKOCYTE ESTERASE TRACE (NEGATIVE); URINE NITRATE POSITIVE (NEGATIVE); URINE PROTEIN(semi-quant) 1+ mg/dL (NEGATIVE); URINE UROBILINOGEN NORMAL (NORMAL)
[2020-03-11 12:35] LABS: URINE MUCUS PRESENT (NOT PRESENT)
== END ==
LOC: LAB 11:58
PROVIDERS: Family Medicine
DX: R39.9 Unspecified symptoms and signs involving the genitourinary system (principal)

== ENCOUNTER → 2020-03-17 | Outpatient (CLI) | payer MEDICARE, OTHER ==
[2020-03-17 17:36] LABS: PH-URINE 5.5 (5.0 - 8.0); URINE APPEARANCE HAZY; URINE BILIRUBIN NEGATIVE (NEGATIVE); URINE BLOOD TRACE (NEGATIVE); URINE COLOR YELLOW; URINE GLUCOSE NEGATIVE (NEGATIVE); URINE KETONE NEGATIVE (NEGATIVE); URINE LEUKOCYTE ESTERASE 2+ (NEGATIVE); URINE NITRATE POSITIVE (NEGATIVE); URINE PROTEIN(semi-quant) 1+ mg/dL (NEGATIVE); URINE UROBILINOGEN NORMAL (NORMAL)
== END ==
LOC: LAB 17:16
PROVIDERS: Family Medicine
DX: R39.9 Unspecified symptoms and signs involving the genitourinary system (principal)

== ENCOUNTER → 2020-03-18 | Outpatient (CLI) | payer MEDICARE, OTHER ==
[2020-03-18 13:54] VITALS: BP 153/73
[2020-03-18 14:53] LABS: POTASSIUM 4.8 mmol/L (3.5-5.1)
[2020-03-18 14:55] LABS: CALCIUM 8.9 mg/dL (8.3-10.5)
== END ==
LOC: LAB 14:12
PROVIDERS: Family Medicine
DX: N19 Unspecified kidney failure (principal)

== ENCOUNTER 2020-03-24 13:24 | Outpatient (RCR) | payer MEDICARE, OTHER ==
[2020-03-18 13:54] VITALS: BP 153/73
[2020-03-19 14:06] VITALS: BP 156/91
[2020-03-20 13:17] VITALS: BP 145/68
[2020-03-21 13:59] VITALS: BP 146/65
[2020-03-22 14:08] VITALS: BP 136/62
[2020-03-23 13:20] VITALS: BP 145/52
[~2020-03-24] VITALS: Ht 172.7 cm; Wt 125.0 kg
[2020-03-24 13:45] VITALS: BP 151/74
== END 2020-03-24 15:00 ==
LOC: AMSURD 13:24
DX: N39.0 Urinary tract infection, site not specified (principal); N19 Unspecified kidney failure; Z79.2 Long term (current) use of antibiotics
CPT/HCPCS: J0692

== ENCOUNTER → 2020-03-24 | Outpatient (CLI) | payer MEDICARE, OTHER ==
[2020-03-23 13:20] VITALS: BP 145/52
[2020-03-24 14:30] LABS: URINE APPEARANCE CLEAR; URINE COLOR YELLOW; URINE PROTEIN(semi-quant) 1+ mg/dL (NEGATIVE)
[2020-03-24 14:31] LABS: URINE BILIRUBIN NEGATIVE (NEGATIVE); URINE BLOOD 50 ery/uL (NEGATIVE); URINE GLUCOSE NEGATIVE (NEGATIVE); URINE KETONE NEGATIVE (NEGATIVE); URINE LEUKOCYTE ESTERASE NEGATIVE (NEGATIVE); URINE NITRATE NEGATIVE (NEGATIVE); URINE UROBILINOGEN NORMAL (NORMAL); URINE WBC 0-1 /hpf (0-3)
== END ==
LOC: LAB 14:19
PROVIDERS: Family Medicine
DX: N39.0 Urinary tract infection, site not specified (principal)

== ENCOUNTER → 2020-04-29 | Outpatient (CLI) | payer MEDICARE, OTHER ==
[2020-04-29 17:08] LABS: URINE APPEARANCE CLOUDY; URINE COLOR ORANGE; URINE GLUCOSE NEGATIVE (NEGATIVE); URINE PROTEIN(semi-quant) 3+ mg/dL (NEGATIVE)
[2020-04-29 17:09] LABS: URINE BILIRUBIN NEGATIVE (NEGATIVE); URINE BLOOD 50 ery/uL (NEGATIVE); URINE KETONE NEGATIVE (NEGATIVE); URINE LEUKOCYTE ESTERASE 2+ (NEGATIVE); URINE NITRATE POSITIVE (NEGATIVE); URINE UROBILINOGEN 1 mg/dL (NORMAL); URINE WBC 31-50 /hpf (0-3)
== END ==
LOC: LAB 16:37
PROVIDERS: Family Medicine
DX: N39.0 Urinary tract infection, site not specified (principal)

== ENCOUNTER 2020-09-26 08:42 | Emergency (ER) | payer MEDICARE, OTHER ==
[2020-09-26 09:54] LABS: EOS # 0.4 (0.04-0.40); HEMATOCRIT 41.2 % (42.0-52.0); HEMOGLOBIN 12.2 g/dL (13.5-18.0); LYMPH# 1.6 (1.50-4.00); MEAN CELL VOLUME 97 fl (78-100); MEAN CORPUSCULAR HEMOGLOBIN 29 pg (27-31); MEAN CORPUSCULAR HGB CONC 30 g/dL (33-37); MEAN PLATELET VOLUME 9.9 fl (7.4-10.4); MONO # 0.6 (0.20-0.80); NEU # 4.2 (1.40-6.50); PLATELET COUNT 214 K/mm3 (130-400); RED BLOOD COUNT 4.24 M/mm3 (4.20-5.60); RED CELL DISTRIBUTION WIDTH 14.2 % (11.5-14.5); WHITE BLOOD COUNT 6.9 K/mm3 (4.8-10.8)
[2020-09-26 10:08] LABS: EOS % 6.3 % (0.0-4.0)
[2020-09-26] MEDS ORDERED: DEXAMETHASONE2 M1 PO (11:03)
[2020-09-26] MEDS ORDERED: NORCO 325 MG-51 TA1 PO (11:03)
[2020-09-26 11:42] VITALS: BP 115/64
== END 2020-09-26 11:42 | disposition home or self-care (01) ==
LOC: ED 08:42
PROVIDERS: Family Medicine
DX: M79.644 Pain in right finger(s) (principal); H60.92 Unspecified otitis externa, left ear; R82.993 Hyperuricosuria; E11.9 Type 2 diabetes mellitus without complications; I10 Essential (primary) hypertension; Z79.84 Long term (current) use of oral hypoglycemic drugs; Z79.82 Long term (current) use of aspirin; Z79.51 Long term (current) use of inhaled steroids; Z79.899 Other long term (current) drug therapy

== ENCOUNTER → 2020-10-26 | Outpatient (CLI) | payer MEDICARE, OTHER ==
[2020-09-26 11:42] VITALS: BP 115/64
[~2020-10-26] MED LIST changes: +AZO D-MANNOSE500 MG PO; +COREG 6.256.25 MG/TA PO; +DEXAMETHASONE2 M1 PO; +FEXOFENADINE H180 M1 PO; +NATURE'S BLEND600 M2 PO; +NORCO 325 MG-51 TA1 PO; +PAIN RELIEVER500 M2 PO; +RT SPIRIVA INH18 MCG IH; +TOBRADEX EYE DRO5 ML OP
[2020-10-26 15:48] LABS: BASO # 0.04 (0.02-0.10); EOS % 4.8 % (0.0-4.0); HEMATOCRIT 40.9 % (42.0-52.0); HEMOGLOBIN 12.8 g/dL (13.5-18.0); LYMPH# 1.53 (1.50-4.00); MEAN CELL VOLUME 96 fl (78-100); MEAN CORPUSCULAR HEMOGLOBIN 30 pg (27-31); MEAN CORPUSCULAR HGB CONC 31 g/dL (33-37); MEAN PLATELET VOLUME 9.9 fl (7.4-10.4); MONO # 0.58 (0.20-0.80); NEU # 3.76 (1.40-6.50); PLATELET COUNT 192 K/mm3 (130-400); RED BLOOD COUNT 4.27 M/mm3 (4.20-5.60); RED CELL DISTRIBUTION WIDTH 13.7 % (11.5-14.5); WHITE BLOOD COUNT 6.2 K/mm3 (4.8-10.8)
[2020-10-26 16:11] LABS: ALBUMIN 3.6 g/dL (3.4-4.8); POTASSIUM 5.6 mmol/L (3.5-5.1)
[2020-10-26 16:12] LABS: CALCIUM 9.2 mg/dL (8.3-10.5)
[2020-10-26 16:14] LABS: TOTAL PROTEIN 6.9 g/dL (6.2-8.1)
[2020-10-26 16:15] LABS: TOTAL BILIRUBIN 0.4 mg/dL (0.2-1.2)
== END ==
LOC: LAB 15:30 → RAD 15:30
PROVIDERS: Family Medicine
DX: E11.22 Type 2 diabetes mellitus with diabetic chronic kidney disease (principal); N18.9 Chronic kidney disease, unspecified; M16.0 Bilateral primary osteoarthritis of hip; M47.816 Spondylosis without myelopathy or radiculopathy, lumbar region

== ENCOUNTER 2021-01-10 21:46 | Emergency (ER) | payer MEDICARE, OTHER ==
[~2021-01-10 21:46] MED LIST changes: -AZO D-MANNOSE500 MG PO; -COREG 6.256.25 MG/TA PO; -FEXOFENADINE H180 M1 PO; -NATURE'S BLEND600 M2 PO; -PAIN RELIEVER500 M2 PO; -RT SPIRIVA INH18 MCG IH; -TOBRADEX EYE DRO5 ML OP
[2021-01-10] MEDS ORDERED: RT SPIRIVA INH18 MCG IH (22:08)
[2021-01-10 22:28] LABS: BASO # 0.05 (0.02-0.10); EOS # 0.27 (0.04-0.40); EOS % 3.9 % (0.0-4.0); HEMATOCRIT 39.9 % (42.0-52.0); HEMOGLOBIN 11.9 g/dL (13.5-18.0); LYMPH# 1.33 (1.50-4.00); MEAN CELL VOLUME 101 fl (78-100); MEAN CORPUSCULAR HEMOGLOBIN 30 pg (27-31); MEAN CORPUSCULAR HGB CONC 30 g/dL (33-37); MEAN PLATELET VOLUME 9.1 fl (7.4-10.4); MONO # 0.73 (0.20-0.80); NEU # 4.55 (1.40-6.50); PLATELET COUNT 211 K/mm3 (130-400); RED BLOOD COUNT 3.97 M/mm3 (4.20-5.60); RED CELL DISTRIBUTION WIDTH 14.5 % (11.5-14.5)
[2021-01-10 22:35] LABS: ALBUMIN 3.3 g/dL (3.4-4.8)
[2021-01-10 22:37] LABS: CALCIUM 8.8 mg/dL (8.3-10.5)
[2021-01-10 22:38] LABS: TOTAL PROTEIN 6.8 g/dL (6.2-8.1)
[2021-01-10 22:40] LABS: TOTAL BILIRUBIN 0.3 mg/dL (0.2-1.2)
[2021-01-10 22:42] LABS: POTASSIUM 7.4 mmol/L (3.5-5.1)
[2021-01-10 23:11] LABS: URINE APPEARANCE HAZY; URINE BILIRUBIN NEGATIVE (NEGATIVE); URINE BLOOD NEGATIVE (NEGATIVE); URINE COLOR YELLOW; URINE GLUCOSE NEGATIVE (NEGATIVE); URINE KETONE NEGATIVE (NEGATIVE); URINE LEUKOCYTE ESTERASE TRACE (NEGATIVE); URINE NITRATE NEGATIVE (NEGATIVE); URINE PROTEIN(semi-quant) 2+ mg/dL (NEGATIVE); URINE UROBILINOGEN NORMAL (NORMAL)
[2021-01-11 04:22] LABS: ALBUMIN 3.5 g/dL (3.4-4.8)
[2021-01-11 04:24] LABS: CALCIUM 8.8 mg/dL (8.3-10.5)
[2021-01-11 04:25] LABS: TOTAL PROTEIN 7.2 g/dL (6.2-8.1)
[2021-01-11 04:27] LABS: TOTAL BILIRUBIN 0.3 mg/dL (0.2-1.2)
[2021-01-11 04:31] LABS: POTASSIUM 7.3 mmol/L (3.5-5.1)
[2021-01-11 05:15] VITALS: BP 166/74
== END 2021-01-11 05:15 | disposition short-term general hospital (02) ==
LOC: ED 21:46
PROVIDERS: Nurse Practitioner
DX: N39.0 Urinary tract infection, site not specified (principal); J18.1 Lobar pneumonia, unspecified organism; E87.5 Hyperkalemia; E11.22 Type 2 diabetes mellitus with diabetic chronic kidney disease; I13.0 Hypertensive heart and chronic kidney disease with heart failure and stage 1 through stage 4 chronic kidney disease, or unspecified chronic kidney disease; N18.9 Chronic kidney disease, unspecified; I50.9 Heart failure, unspecified; N17.9 Acute kidney failure, unspecified; I27.20 Pulmonary hypertension, unspecified; E66.01 Morbid (severe) obesity due to excess calories; J44.9 Chronic obstructive pulmonary disease, unspecified; Z20.822 Contact with and (suspected) exposure to COVID-19; Z79.82 Long term (current) use of aspirin; Z79.899 Other long term (current) drug therapy; Z79.84 Long term (current) use of oral hypoglycemic drugs
CPT/HCPCS: A4340; J0456; J0610; J0696; J1815; J1940; J7050

== ENCOUNTER 2021-01-31 13:18 | Outpatient (RCR) | payer MEDICARE, OTHER ==
[~2021-01-31 13:18] MED LIST changes: +RT SPIRIVA INH18 MCG IH
[2021-02-20] MEDS ORDERED: PAIN RELIEVER500 M2 PO (14:52)
[2021-02-20] MEDS ORDERED: NATURE'S BLEND600 M2 PO (14:53)
[2021-02-20] MEDS ORDERED: ESTER-C 1,0001 EACH PO (14:53)
[2021-02-20] MEDS ORDERED: AZO D-MANNOSE500 MG PO (14:54)
[2021-02-20] MEDS ORDERED: COREG 6.256.25 MG/TA PO (14:54)
[2021-02-20] MEDS ORDERED: FEXOFENADINE H180 M1 PO (14:56)
[2021-02-20] MEDS ORDERED: TOBRADEX EYE DRO5 ML OP (14:59)
== END 2021-05-01 ==
LOC: PT
DX: Z79.899 Other long term (current) drug therapy (principal)

== ENCOUNTER → 2021-02-15 | Outpatient (CLI) | payer MEDICARE, OTHER ==
[~2021-02-15] MED LIST changes: +AZO D-MANNOSE500 MG PO; +COREG 6.256.25 MG/TA PO; +FEXOFENADINE H180 M1 PO; +NATURE'S BLEND600 M2 PO; +PAIN RELIEVER500 M2 PO; +TOBRADEX EYE DRO5 ML OP
[2021-02-15 19:06] LABS: URINE APPEARANCE HAZY; URINE BILIRUBIN NEGATIVE (NEGATIVE); URINE BLOOD NEGATIVE (NEGATIVE); URINE COLOR YELLOW; URINE GLUCOSE NEGATIVE (NEGATIVE); URINE KETONE NEGATIVE (NEGATIVE); URINE LEUKOCYTE ESTERASE 1+ (NEGATIVE); URINE MUCUS PRESENT (NOT PRESENT); URINE NITRATE NEGATIVE (NEGATIVE); URINE PROTEIN(semi-quant) 2+ mg/dL (NEGATIVE); URINE UROBILINOGEN NORMAL (NORMAL); URINE WBC 31-50 /hpf (0-3)
== END ==
LOC: LAB 17:21
PROVIDERS: Family Medicine
DX: N39.0 Urinary tract infection, site not specified (principal)

== ENCOUNTER 2021-02-20 14:20 | Emergency (ER) | payer MEDICARE, OTHER ==
[~2021-02-20] VITALS: Ht 167.6 cm; Wt 127.2 kg
[~2021-02-20 14:20] MED LIST changes: -AZO D-MANNOSE500 MG PO; -COREG 6.256.25 MG/TA PO; -FEXOFENADINE H180 M1 PO; -NATURE'S BLEND600 M2 PO; -PAIN RELIEVER500 M2 PO; -TOBRADEX EYE DRO5 ML OP
[2021-02-20] MEDS ORDERED: PAIN RELIEVER500 M2 PO (14:52)
[2021-02-20] MEDS ORDERED: NATURE'S BLEND600 M2 PO (14:53)
[2021-02-20] MEDS ORDERED: ESTER-C 1,0001 EACH PO (14:53)
[2021-02-20] MEDS ORDERED: COREG 6.256.25 MG/TA PO (14:54)
[2021-02-20] MEDS ORDERED: AZO D-MANNOSE500 MG PO (14:54)
[2021-02-20] MEDS ORDERED: FEXOFENADINE H180 M1 PO (14:56)
[2021-02-20] MEDS ORDERED: TOBRADEX EYE DRO5 ML OP (14:59)
[2021-02-20 15:10] LABS: HEMATOCRIT 39.3 % (42.0-52.0); HEMOGLOBIN 12.3 g/dL (13.5-18.0); MEAN CELL VOLUME 97 fl (78-100); MEAN CORPUSCULAR HEMOGLOBIN 30 pg (27-31); MEAN CORPUSCULAR HGB CONC 31 g/dL (33-37); MEAN PLATELET VOLUME 9.3 fl (7.4-10.4); PLATELET COUNT 234 K/mm3 (130-400); RED BLOOD COUNT 4.07 M/mm3 (4.20-5.60); RED CELL DISTRIBUTION WIDTH 12.9 % (11.5-14.5); WHITE BLOOD COUNT 9.2 K/mm3 (4.8-10.8)
[2021-02-20 15:11] LABS: BASO # 0.06 (0.02-0.10); EOS # 0.26 (0.04-0.40); EOS % 2.8 % (0.0-4.0); LYMPH# 1.39 (1.50-4.00); MONO # 0.87 (0.20-0.80); NEU # 6.64 (1.40-6.50)
[2021-02-20 15:14] LABS: ALBUMIN 3.2 g/dL (3.4-4.8); POTASSIUM 4.8 mmol/L (3.5-5.1)
[2021-02-20 15:15] LABS: CALCIUM 9.8 mg/dL (8.3-10.5)
[2021-02-20 15:20] LABS: TOTAL BILIRUBIN 0.3 mg/dL (0.2-1.2); TOTAL PROTEIN 6.6 g/dL (6.2-8.1)
[2021-02-20 15:51] VITALS: BP 109/61
== END 2021-02-20 15:51 | disposition home or self-care (01) ==
LOC: ED 14:20
PROVIDERS: Family Medicine
DX: N39.0 Urinary tract infection, site not specified (principal); K59.00 Constipation, unspecified; I10 Essential (primary) hypertension; E11.22 Type 2 diabetes mellitus with diabetic chronic kidney disease; N18.9 Chronic kidney disease, unspecified; J44.9 Chronic obstructive pulmonary disease, unspecified; Z88.2 Allergy status to sulfonamides; Z79.84 Long term (current) use of oral hypoglycemic drugs; Z79.899 Other long term (current) drug therapy

== ENCOUNTER → 2021-02-21 | Outpatient (CLI) | payer MEDICARE ==
[~2021-02-21] MED LIST changes: +AZO D-MANNOSE500 MG PO; +COREG 6.256.25 MG/TA PO; +FEXOFENADINE H180 M1 PO; +NATURE'S BLEND600 M2 PO; +PAIN RELIEVER500 M2 PO; +TOBRADEX EYE DRO5 ML OP
[2021-02-21 12:57] LABS: URINE COLOR YELLOW
[2021-02-21 12:58] LABS: URINE APPEARANCE CLEAR; URINE BILIRUBIN NEGATIVE (NEGATIVE); URINE BLOOD NEGATIVE (NEGATIVE); URINE GLUCOSE NEGATIVE (NEGATIVE); URINE KETONE NEGATIVE (NEGATIVE); URINE LEUKOCYTE ESTERASE TRACE (NEGATIVE); URINE MUCUS PRESENT (NOT PRESENT); URINE NITRATE NEGATIVE (NEGATIVE); URINE PROTEIN(semi-quant) 2+ mg/dL (NEGATIVE); URINE UROBILINOGEN NORMAL (NORMAL)
== END ==
LOC: LAB 12:25
PROVIDERS: Family Medicine
DX: N39.0 Urinary tract infection, site not specified (principal)

== ENCOUNTER → 2021-03-18 | Outpatient (CLI) | payer MEDICARE ==
[2021-03-18 15:56] LABS: URINE APPEARANCE CLEAR; URINE COLOR YELLOW
[2021-03-18 15:57] LABS: URINE BILIRUBIN NEGATIVE (NEGATIVE); URINE BLOOD NEGATIVE (NEGATIVE); URINE GLUCOSE NEGATIVE (NEGATIVE); URINE KETONE NEGATIVE (NEGATIVE); URINE LEUKOCYTE ESTERASE NEGATIVE (NEGATIVE); URINE NITRATE NEGATIVE (NEGATIVE); URINE PROTEIN(semi-quant) 2+ mg/dL (NEGATIVE); URINE UROBILINOGEN NORMAL (NORMAL)
== END ==
LOC: LAB 14:57
PROVIDERS: Family Medicine
DX: N39.0 Urinary tract infection, site not specified (principal)

== ENCOUNTER → 2021-03-30 | Outpatient (CLI) | payer MEDICARE, OTHER ==
[2021-03-30 14:36] LABS: URINE APPEARANCE CLEAR; URINE COLOR YELLOW
[2021-03-30 14:37] LABS: URINE BILIRUBIN NEGATIVE (NEGATIVE); URINE BLOOD NEGATIVE (NEGATIVE); URINE GLUCOSE NEGATIVE (NEGATIVE); URINE KETONE NEGATIVE (NEGATIVE); URINE LEUKOCYTE ESTERASE NEGATIVE (NEGATIVE); URINE MUCUS PRESENT (NOT PRESENT); URINE NITRATE NEGATIVE (NEGATIVE); URINE PROTEIN(semi-quant) 2+ mg/dL (NEGATIVE); URINE UROBILINOGEN NORMAL (NORMAL)
== END ==
LOC: LAB 14:02
PROVIDERS: Family Medicine
DX: N39.0 Urinary tract infection, site not specified (principal)

== ENCOUNTER → 2021-04-12 | Outpatient (CLI) | payer MEDICARE, OTHER ==
[2021-04-12 15:25] LABS: URINE APPEARANCE CLEAR; URINE BILIRUBIN NEGATIVE (NEGATIVE); URINE BLOOD NEGATIVE (NEGATIVE); URINE COLOR YELLOW; URINE GLUCOSE NEGATIVE (NEGATIVE); URINE KETONE NEGATIVE (NEGATIVE); URINE LEUKOCYTE ESTERASE NEGATIVE (NEGATIVE); URINE NITRATE NEGATIVE (NEGATIVE); URINE PROTEIN(semi-quant) 2+ mg/dL (NEGATIVE); URINE UROBILINOGEN NORMAL (NORMAL)
[2021-04-12 15:26] LABS: URINE MUCUS PRESENT (NOT PRESENT)
== END ==
LOC: LAB 11:52
PROVIDERS: Family Medicine
DX: N39.0 Urinary tract infection, site not specified (principal)

== ENCOUNTER → 2021-04-27 | Outpatient (CLI) | payer MEDICARE, OTHER ==
[2021-04-27 11:29] LABS: BASO # 0.04 K/mm3 (0.02-0.10); EOS # 0.28 K/mm3 (0.04-0.40); EOS % 4.2 % (0.0-4.0); HEMATOCRIT 41.3 % (42.0-52.0); HEMOGLOBIN 12.7 g/dL (13.5-18.0); LYMPH# 1.79 K/mm3 (1.50-4.00); MEAN CELL VOLUME 95 fl (78-100); MEAN CORPUSCULAR HEMOGLOBIN 29 pg (27-31); MEAN CORPUSCULAR HGB CONC 31 g/dL (33-37); MEAN PLATELET VOLUME 9.7 fl (7.4-10.4); MONO # 0.65 K/mm3 (0.20-0.80); PLATELET COUNT 210 K/mm3 (130-400); RED BLOOD COUNT 4.33 M/mm3 (4.20-5.60); RED CELL DISTRIBUTION WIDTH 13.8 % (11.5-14.5); WHITE BLOOD COUNT 6.7 K/mm3 (4.8-10.8)
[2021-04-27 11:30] LABS: ALBUMIN 3.8 g/dL (3.4-4.8)
[2021-04-27 11:31] LABS: POTASSIUM 4.7 mmol/L (3.5-5.1)
[2021-04-27 11:32] LABS: CALCIUM 9.3 mg/dL (8.3-10.5)
[2021-04-27 11:40] LABS: URINE APPEARANCE CLEAR; URINE BILIRUBIN NEGATIVE (NEGATIVE); URINE BLOOD NEGATIVE (NEGATIVE); URINE COLOR YELLOW; URINE GLUCOSE NEGATIVE (NEGATIVE); URINE KETONE NEGATIVE (NEGATIVE); URINE LEUKOCYTE ESTERASE TRACE (NEGATIVE); URINE NITRATE NEGATIVE (NEGATIVE); URINE PROTEIN(semi-quant) 1+ mg/dL (NEGATIVE); URINE UROBILINOGEN NORMAL (NORMAL)
== END ==
LOC: LAB 10:58
DX: I12.9 Hypertensive chronic kidney disease with stage 1 through stage 4 chronic kidney disease, or unspecified chronic kidney disease (principal); N18.30 Chronic kidney disease, stage 3 unspecified; N39.0 Urinary tract infection, site not specified

== ENCOUNTER 2021-06-15 14:36 | Emergency (ER) | payer MEDICARE, OTHER ==
[2021-06-15 16:39] LABS: BASO # 0.05 K/mm3 (0.02-0.10); EOS # 0.39 K/mm3 (0.04-0.40); EOS % 5.5 % (0.0-4.0); HEMATOCRIT 41.9 % (42.0-52.0); HEMOGLOBIN 12.5 g/dL (13.5-18.0); LYMPH# 1.36 K/mm3 (1.50-4.00); MEAN CELL VOLUME 95 fl (78-100); MEAN CORPUSCULAR HEMOGLOBIN 29 pg (27-31); MEAN CORPUSCULAR HGB CONC 30 g/dL (33-37); MEAN PLATELET VOLUME 9.2 fl (7.4-10.4); MONO # 0.65 K/mm3 (0.20-0.80); NEU # 4.67 K/mm3 (1.40-6.50); PLATELET COUNT 213 K/mm3 (130-400); RED BLOOD COUNT 4.39 M/mm3 (4.20-5.60); WHITE BLOOD COUNT 7.1 K/mm3 (4.8-10.8)
[2021-06-15 16:51] LABS: ALBUMIN 3.7 g/dL (3.4-4.8); POTASSIUM 5.1 mmol/L (3.5-5.1)
[2021-06-15 16:53] LABS: CALCIUM 9.6 mg/dL (8.3-10.5)
[2021-06-15 16:54] LABS: TOTAL PROTEIN 8.3 g/dL (6.2-8.1)
[2021-06-15 16:56] LABS: TOTAL BILIRUBIN 0.4 mg/dL (0.2-1.2)
[2021-06-15] MEDS ORDERED: MORGIDOX 1X100100 MG PO (17:22)
[2021-06-15 17:57] VITALS: BP 157/69
[2021-06-15] MEDS ORDERED: CALCIPOTRIENE0.0051 TOP (20:07)
[2021-06-15] MEDS ORDERED: CRANBERRY200 MG (20:08)
[2021-06-15] MEDS ORDERED: ADVAIR DISKUS1 DSK (20:10)
[2021-06-15] MEDS ORDERED: SYMBICORT1 AE3 IH (20:13)
== END 2021-06-15 18:14 | disposition home or self-care (01) ==
LOC: ED 14:36
PROVIDERS: Physician Assistant
DX: L03.116 Cellulitis of left lower limb (principal); L03.115 Cellulitis of right lower limb; R60.0 Localized edema; I10 Essential (primary) hypertension; J44.9 Chronic obstructive pulmonary disease, unspecified; E66.01 Morbid (severe) obesity due to excess calories; E11.40 Type 2 diabetes mellitus with diabetic neuropathy, unspecified; Z87.891 Personal history of nicotine dependence; Z79.84 Long term (current) use of oral hypoglycemic drugs; Z79.82 Long term (current) use of aspirin; Z79.899 Other long term (current) drug therapy
CPT/HCPCS: J0696

== ENCOUNTER → 2021-06-17 | Outpatient (CLI) | payer MEDICARE, OTHER ==
[~2021-06-17] MED LIST changes: +ADVAIR DISKUS1 DSK; +CALCIPOTRIENE0.0051 TOP; +CRANBERRY200 MG; +MORGIDOX 1X100100 MG PO; +SYMBICORT1 AE3 IH
[2021-06-17 09:53] LABS: POTASSIUM 4.8 mmol/L (3.5-5.1)
[2021-06-17 09:55] LABS: CALCIUM 9.7 mg/dL (8.3-10.5)
== END ==
LOC: LAB 09:34
PROVIDERS: Family Medicine
DX: N18.9 Chronic kidney disease, unspecified (principal)